=== PATIENT | female | born 1970 ===

== ENCOUNTER 2024-12-27 09:48 | Outpatient (AMB) | payer OTHER, SELFPAY ==
--- OUTSIDE RECORDS SUMMARY | 2011-07-10 | XMS_ITS | Encounter Summary ---
Author Organization [facility] Address [address] [facility] [address] [place] [address] Phone Care Team Providers Care High Voltage Electrician Name Role Phone Unavailable Primary Care Provider Unavailabl e Encounter Details Date Type Department Care Team (Late st Contact Info) Description 07/10/2011 Hospital Encounter [facility] IMG OUTSIDE IM 2013 [place] [address] System, Provider Not In, PhD [address] [address] Social History Tobacco Use Types Packs/Day Years Used Date Smoking Tobacco: Never Smokeless Tobacco: Never Alcohol Use Standard Drinks/Week Comments Yes 1 (1 standard drink = 0.6 oz pur e alcohol) rare Education Answer Date Recorded Are you interested in more education? Not on anabela e 08/07/2022 Are you concerned about learning? Not on file 08/07/2022 No 08/07/2022 No 08/07/2022 Digital Access Answer Date Recorded No 09/07/2022 No 09/07/2022 Reliable internet access at home? Not on file 09/07/2022 Device with a working camera? Not on file Comments No Sex and Gender Information Value Date Recorded Sex Assigned at Female 11/13/2019 10:11 AM EDT Legal Sex Female 2:59 PM EDT Gender Identity Female 11/13/2019 10:11 AM EDT Sexual Orientation Not on file documented as of this encounter Plan of Treatment Upcoming Encounters Date Type Department Care Team (Late st Contact Info) Description 03/13/[address] [facility] Center [address] [facility] [address] [place] [address] 03/19/2025 12:30 PM EST Appointment [facility] [address] [facility] [address] [place] [address] Lorraine Navarro, PINSETTER MECHANIC HELPER [address] [address] [email or web address] 03/19/2025 1:30 PM EST Office Visit [facility] [address] [facility], [address] [place] [address] Lorraine Navarro, PINSETTER MECHANIC HELPER [address] [address] [email or web address] Jocelin Callaway, PINSETTER MECHANIC HELPER [address] [address] [email or web address] documented as of this encounter Procedures Procedure Name Priority Date/Time Associated Diagnosis Comments BI MAMMOGRAM OUTSIDE (NO INTERPRETATION) Routine 07/10/2011 12:00 AM EDT documented in this encounter Results * Mammogram Outside (No Interpretation) (07/10/2011 12:00 AM EDT) Narrative [facility] IMG INTERFACES - 12/16/2016 5:33 PM EDT This study is for PACS storage only and not for interpretation. us Provider Not In System PhD IMG OUTSIDE IMAGING W /OUT INTERPRETATION Final Result [facility] IMG INTERFACES documented in this encounter Visit Diagnoses Not on filedocumented in this encounter Additional Source Comments The information contained in this document represents components of the legal health record. It is not the complete legal health record.[facility]
--- OUTSIDE RECORDS SUMMARY | 2014-05-23 01:00 | XMS_ITS | Encounter Summary ---
Author Organization [facility] Address [address] [facility] [address] [place] [address] Phone Care Team Providers Care Telecommunications Analyst Name Role Phone Unavailable Primary Care Provider Unavailabl e Encounter Details Date Type Department Care Team (Late st Contact Info) Description 05/23/2014 Hospital Encounter [facility] IMG OUTSIDE IM 2013 [place] [address] System, Provider Not In, PhD [address] [address] Social History Tobacco Use Types Packs/Day Years [...] st Contact Info) Description 03/13/2024 Procedure Pass [facility] Breast Evaluation [facility] [address] [facility] [address] [place] [address] 03/19/2025 12:30 PM EST Appointment [facility] [address] [facility] [address] [place] [address] Lorraine Navarro, ORE GRADER [address] [address] [email or web address] 03/19/2025 1:30 PM EST Office Visit [facility] [address] [facility], [address] [place] [address] Lorraine Navarro, ORE GRADER [address] [address] [email or web address] Jocelin Callaway, ORE GRADER [address] [address] [email or web address] documented as of this encounter Procedures Procedure Name Priority Date/Time Associated Diagnosis Comments BI MAMMOGRAM OUTSIDE (NO INTERPRETATION) Routine 05/23/2014 12:00 AM EST documented in this encounter Results * Mammogram Outside (No Interpretation) (05/23/2014 12:00 AM EST) Narrative [facility] IMG INTERFACES - 12/16/2016 5:28 PM EDT This study is for PACS storage only and not for interpretation. us Provider Not In System PhD IMG OUTSIDE IMAGING W /OUT INTERPRETATION Final Result [facility] IMG INTERFACES documented in this encounter Visit Diagnoses Not on filedocumented in this encounter Additional Source Comments The information contained in this document represents components of the legal health record. It is not the complete legal health record.[facility]
--- OUTSIDE RECORDS SUMMARY | 2014-05-31 01:00 | XMS_ITS | Encounter Summary ---
Author Organization [facility] Address [address] [facility] [address] [place] [address] Phone Care Team Providers Care Priest Name Role Phone Unavailable Primary Care Provider Unavailabl e Encounter Details Date Type Department Care Team (Late st Contact Info) Description 05/31/2014 Hospital Encounter [facility] IMG OUTSIDE IM 2013 [place] [address] System, Provider Not In, PhD [address] [address] Social History Tobacco Use Types Packs/Day Years [...] st Contact Info) Description 03/13/[address] [facility] Breast Evaluation Center [address] [facility] [address] [place] [address] 03/19/2025 12:30 PM EST Appointment [facility] [address] [facility] [address] [place] [address] Lorraine Navarro, DRIVER'S LICENSE EXAMINER [address] [address] [email or web address] 03/19/2025 1:30 PM EST Office Visit [facility] [address] [facility], [address] [place] [address] Lorraine Navarro, DRIVER'S LICENSE EXAMINER [address] [address] [email or web address] Jocelin Callaway, DRIVER'S LICENSE EXAMINER [address] [address] [email or web address] documented as of this encounter Procedures Procedure Name Priority Date/Time Associated Diagnosis Comments BI MAMMOGRAM OUTSIDE (NO INTERPRETATION) Routine 05/31/2014 12:00 AM EST documented in this encounter Results * Mammogram Outside (No Interpretation) (05/31/2014 12:00 AM EST) Narrative [facility] IMG INTERFACES - 12/16/2016 5:23 PM EDT This study is for PACS storage only and not for interpretation. us Provider Not In System PhD IMG OUTSIDE IMAGING W /OUT INTERPRETATION Final Result [facility] IMG INTERFACES documented in this encounter Visit Diagnoses Not on filedocumented in this encounter Additional Source Comments The information contained in this document represents components of the legal health record. It is not the complete legal health record.[facility]
--- OUTSIDE RECORDS SUMMARY | 2014-05-31 01:15 | XMS_ITS | Encounter Summary ---
Author Organization [facility] Address [address] [facility] [address] [place] [address] Phone Care Team Providers Care Community Coordinator For High School Name Role Phone Unavailable Primary Care Provider Unavailabl e Encounter Details Date Type Department Care Team (Late st Contact Info) Description 05/31/2014 12:[address] [facility] Hospital Encounter [facility] IMG OUTSIDE IM 2013 [place] [address] System, Provider [place] In, [place] [address] Social History Tobacco Use Types Packs/Day Years [...] st Contact Info) Description 03/13/2024 Procedure Pass [facility] Breast Evaluation Center [address] [facility] [address] [place] [address] 03/19/2025 12:30 PM EST Appointment [place] [facility] [address] [facility] [address] [place] [address] Lorraine Navarro, PHYSICAL CHEMIST [address] [address] [email or web address] 03/19/2025 1:30 PM EST Office Visit [facility] [address] [facility], [address] [place] [address] Lorraine Navarro, PHYSICAL CHEMIST [address] [address] [email or web address] Jocelin Callaway, PHYSICAL CHEMIST 55 [facility] 7 [place] [address] [email or web address] documented as of this encounter Procedures Procedure Name Priority Date/Time Associated Diagnosis Comments BI US BREAST OUTSIDE (NO INTERPRETATION) Routine 05/31/2014 12:15 AM EST documented in this encounter Results * US Breast Outside (No Interpretation) (05/31/2014 12:15 AM EST) Narrative [facility] IMG INTERFACES - 12/16/2016 5:25 PM EDT This study is for PACS storage only and not for interpretation. us Provider Not In System PhD IMG OUTSIDE IMAGING W /OUT INTERPRETATION Final Result [facility] IMG INTERFACES documented in this encounter Visit Diagnoses Not on filedocumented in this encounter Additional Source Comments The information contained in this document represents components of the legal health record. It is not the complete legal health record.[facility]
--- OUTSIDE RECORDS SUMMARY | 2014-06-04 01:00 | XMS_ITS | Encounter Summary ---
Author Organization [facility] Address [address] [facility] [address] [place] [address] Phone Care Team Providers Care Pullboat Engineer Name Role Phone Unavailable Primary Care Provider Unavailabl e Encounter Details Date Type Department Care Team (Late st Contact Info) Description 06/04/2014 Hospital Encounter [facility] IMG OUTSIDE IM 2013 [place] [address] System, Provider Not In, PhD [address] [address] Social History Tobacco Use Types Packs/Day Years [...] [place] [facility] [address] [facility] [address] [place] [address] 03/19/2025 12:30 PM EST Appointment [facility] [address] [facility] [address] [place] [address] Lorraine Navarro, NITRATOR OPERATOR [address] [address] [email or web address] 03/19/2025 1:30 PM EST Office Visit [facility] Breast Center [address] [facility], [address] [place] [address] Lorraine Navarro, NITRATOR OPERATOR [address] [address] [email or web address] Jocelin Callaway, NITRATOR OPERATOR [address] [address] [email or web address] documented as of this encounter Procedures Procedure Name Priority Date/Time Associated Diagnosis Comments BI MAMMOGRAM OUTSIDE (NO INTERPRETATION) Routine 06/04/2014 12:00 AM EST documented in this encounter Results * Mammogram Outside (No Interpretation) (06/04/2014 12:00 AM EST) Narrative [facility] IMG INTERFACES - 12/16/2016 5:18 PM EDT This study is for PACS storage only and not for interpretation. us Provider Not In System PhD IMG OUTSIDE IMAGING W /OUT INTERPRETATION Final Result [facility] IMG INTERFACES documented in this encounter Visit Diagnoses Not on filedocumented in this encounter Additional Source Comments The information contained in this document represents components of the legal health record. It is not the complete legal health record.[facility]
--- OUTSIDE RECORDS SUMMARY | 2014-06-04 01:15 | XMS_ITS | Encounter Summary ---
Author Organization [facility] Address [address] [facility] [address] [place] [address] Phone Care Team Providers Care System Administrator Name Role Phone Unavailable Primary Care Provider Unavailabl e Encounter Details Date Type Department Care Team (Late st Contact Info) Description 06/04/2014 12:15 AM [facility] Hospital Encounter [facility] IMG OUTSIDE IM [address] [place] [address] System, Provider [place] In, [place] [address] Social History Tobacco Use Types Packs/Day Years [...] st Contact Info) Description 03/13/2024 Procedure Pass [facility] Breast Evaluation Center [address] [place] [address] 03/19/2025 12:30 PM EST Appointment [facility] [address] [place] [address] Lorraine Navarro, NOC ANALYST [address] [address] [email or web address] [email or web address] 03/19/2025 1:30 PM EST Office Visit [facility] Breast Center [address], [address] [place] [address] Lorraine Navarro, NOC ANALYST [address] [address] [email or web address] Jocelin Callaway, NOC ANALYST [address] [address] [email or web address] documented as of this encounter Procedures Procedure Name Priority Date/Time Associated Diagnosis Comments BI US BREAST OUTSIDE (NO INTERPRETATION) Routine 06/04/2014 12:15 AM EST documented in this encounter Results * US Breast Outside (No Interpretation) (06/04/2014 12:15 AM EST) Narrative [facility] IMG INTERFACES - 12/16/2016 5:20 PM EDT This study is for PACS storage only and not for interpretation. us Provider Not In System PhD IMG OUTSIDE IMAGING W /OUT INTERPRETATION Final Result [facility] IMG INTERFACES documented in this encounter Visit Diagnoses Not on filedocumented in this encounter Additional Source Comments The information contained in this document represents components of the legal health record. It is not the complete legal health record.[facility]
--- OUTSIDE RECORDS SUMMARY | 2014-11-21 | XMS_ITS | Encounter Summary ---
Author Organization [facility] Address [address] [facility] [address] [place] [address] Phone Care Team Providers Care Peer Specialist Name Role Phone Unavailable Primary Care Provider Unavailabl e Encounter Details Date Type Department Care Team (Late st Contact Info) Description 11/21/2014 Hospital Encounter [facility] IMG OUTSIDE IM 2013 [place] [address] System, Provider Not In, PhD [address] [address] Social History Tobacco Use Types Packs/Day Years [...] st Contact Info) Description 03/13/2024 Procedure Pass [facility] Breast Evaluation Center [address] [facility] [facility] [address] [place] [address] 03/19/2025 12:30 PM EST Appointment [facility] [address] [place] [address] Lorraine Navarro, FOUNDRY WORKER [address] [address] [email or web address] 03/19/2025 1:30 PM EST Office Visit [facility] [address], [address] [place] [address] Lorraine Navarro, FOUNDRY WORKER [address] [address] [email or web address] Jocelin Callaway, FOUNDRY WORKER [address] [address] [email or web address] documented as of this encounter Procedures Procedure Name Priority Date/Time Associated Diagnosis Comments BI US BREAST OUTSIDE (NO INTERPRETATION) Routine 11/21/2014 12:00 AM EDT documented in this encounter Results * US Breast Outside (No Interpretation) (11/21/2014 12:00 AM EDT) Narrative [facility] IMG INTERFACES - 12/16/2016 5:15 PM EDT This study is for PACS [...]
--- OUTSIDE RECORDS SUMMARY | 2015-09-24 | XMS_ITS | Encounter Summary ---
Author Organization [facility] Address [address] [facility] [address] [place] [address] Phone Care Team Providers Care Enterprise Engineer Name Role Phone Unavailable Primary Care Provider Unavailabl e Encounter Details Date Type Department Care Team (Late st Contact Info) Description 09/24/2015 Hospital Encounter [facility] IMG OUTSIDE IM 2013 [place] [address] System, Provider Not In, PhD [address] [address] Social History Tobacco Use Types Packs/Day Years [...] st Contact Info) Description 03/13/2024 Procedure Pass [facility] Breast Evaluation Center [address] [facility] [facility] [address] [place] [address] 03/19/2025 12:30 PM EST Appointment [facility] [address] [place] [address] Lorraine Navarro, INGOT PASSER [address] [address] [email or web address] 03/19/2025 1:30 PM EST Office Visit [facility] Breast Center [address], [address] [place] [address] Lorraine Navarro, INGOT PASSER [address] [address] [email or web address] Jocelin Callaway, INGOT PASSER [address] [address] [email or web address] documented as of this encounter Procedures Procedure Name Priority Date/Time Associated Diagnosis Comments BI MAMMOGRAM OUTSIDE (NO INTERPRETATION) Routine 09/24/2015 12:00 AM EDT documented in this encounter Results * Mammogram Outside (No Interpretation) (09/24/2015 12:00 AM EDT) Narrative [facility] IMG INTERFACES - 12/16/2016 5:10 PM EDT This study is for PACS storage only and not for interpretation. us Provider Not In System PhD IMG OUTSIDE IMAGING W /OUT INTERPRETATION Final Result [facility] IMG INTERFACES documented in this encounter Visit Diagnoses Not on filedocumented in this encounter Additional Source Comments The information contained in this document represents components of the legal health record. It is not the complete legal health record.[facility]
--- OUTSIDE RECORDS SUMMARY | 2024-12-27 11:36 | XMS_ITS | Encounter Summary ---
Author Organization [facility] Address [address] [place] [address] [place] [address] Phone Care Team Providers Care Manager Planning Name Role Phone Viola Schulz MD Primary Care Provider [phone] Erin Campa MD Unavailable Sumi Wilson Unavailable [phone] Encounter Details Date Type Department Care Team (Late st Contact Info) Description 12/18/2016 Procedure Pass [facility] PERIOPERATIVE DEPT 2013 [place] [address] Social History Tobacco Use Types Packs/Day Years Used Date Smoking Tobacco: Never Smokeless Tobacco: Never Alcohol Use Standard Drinks/Week Comments Yes 0 (1 standard drink = 0.6 oz pur e alcohol) rare Comments No Sex and Gender Information Value Date Recorded Sex Assigned at Female 11/13/2019 10:11 AM EDT Legal Sex Female 2:59 PM EDT Gender Identity Female 11/13/2019 10:11 AM EDT Sexual Orientation Not on file documented as of this encounter Plan of Treatment Upcoming Encounters Date Type Department Care Team (Late st Contact Info) Description 03/13/2024 Procedure Pass [facility] Breast Evaluation Center [address] [place] [address] 03/19/2025 12:30 PM EST Appointment [facility] [address] [place] [address] 240 [place] [address] Lorraine Navarro, ELECTRICIAN HELPER AUTOMOTIVE [address] [address] 03/19/2025 1:30 PM EST Office Visit [facility] Breast Center 15 [facility], [address] [place] [address] Lorraine Navarro, ELECTRICIAN HELPER AUTOMOTIVE 15 [facility] [address] [place] [address] [email or web address] Jocelin Callaway, ELECTRICIAN HELPER AUTOMOTIVE 55 [facility] [address] [place] [address] [email or web address] documented as of this encounter Visit Diagnoses Not on filedocumented in this encounter Care Teams Manager Planning Relationship Specialty Start Date End Date Viola Schulz MD [address] [place] [address] [address] [place] [address] PCP - General Internal Medicine 08/17/16 Erin Campa MD [address] [place] [address] [email or web address] Primary Oncologist Medical Oncology 10/05/17 Sumi Wilson FNP 30 [place] [address] [email or web address] Nurse Practitioner Oncology 05/30/21 documented as of this encounter Additional Source Comments The information contained in this document represents components of the legal health record. It is not the complete legal health record.[facility]
--- OUTSIDE RECORDS SUMMARY | 2024-12-27 11:36 | XMS_ITS | Encounter Summary ---
Author Organization [facility] Address [address] [place] [address] Phone Care Team Providers Care Community Health Program Representative Name Role Phone Viola Schulz MD Primary Care Provider [phone] Erin Campa MD Unavailable Sumi Wilson Unavailable [phone] Encounter Details Date Type Department Care Team (Late st Contact Info) Description 11/12/2022 Procedure Pass [facility] Breast Evaluation Center 15 [facility] [address] [place] [address] Social History Tobacco Use Types Packs/Day Years [...] st Contact Info) Description 03/13/2024 Procedure Pass [facility] Breast Evaluation [place] 15 [facility] [address] [place] [address] 03/19/2025 12:30 PM EST Appointment [facility] Breast Evaluation [place] [address] [address] Lorraine Navarro, BIOSECURITY OFFICER [address] [address] [email or web address] 03/19/2025 1:30 PM EST Office Visit [facility] 15 [facility], [address] [place] [address] Lorraine Navarro, BIOSECURITY OFFICER [address] [address] [email or web address] Jocelin Callaway, BIOSECURITY OFFICER [address] [place] [address] [email or web address] documented as of this encounter Visit Diagnoses Not on filedocumented in this encounter Care Teams Community Health Program Representative Relationship Specialty Start Date End Date Viola Schulz MD [address] [place] [address] PCP - General Internal Medicine 08/17/16 Erin Campa MD [address] [place] [address] [email or web address] Primary Oncologist Medical Oncology 10/05/17 Sumi Wilson FNP 30 [place] [address] Nurse Practitioner Oncology 05/30/21 documented as of this encounter Additional Source Comments The information contained in this document represents components of the legal health record. It is not the complete legal health record.[facility]
--- OUTSIDE RECORDS SUMMARY | 2024-12-27 11:36 | XMS_ITS | Encounter Summary ---
Author Organization [facility] Address [address] [place] [address] [place] [address] Phone Care Team Providers Care Brick Extruder Operator Name Role Phone Viola Schulz MD Primary Care Provider [phone] Erin Campa MD Unavailable Sumi Wilson Unavailable [phone] Encounter Details Date Type Department Care Team (Late st Contact Info) Description 08/24/2016 Procedure Pass [facility] PERIOPERATIVE DEPT 2013 [place] [address] Social History Tobacco Use Types Packs/Day Years Used Date Smoking Tobacco: Never Smokeless Tobacco: Never Alcohol Use Standard Drinks/Week Comments No 0 (1 standard drink = 0.6 oz pur e alcohol) Comments No Sex and Gender Information Value [...] [facility] Breast Evaluation Center [address] [place] [address] 03/19/2025 12:30 PM EST Appointment [facility] [address] [place] [address] 240 [place] [address] Lorraine Navarro, ROCKET ENGINE TESTER [address] [place] [address] 03/19/2025 1:30 PM EST [facility] 15 [facility], [address] [place] [address] Lorraine Navarro, ROCKET ENGINE TESTER 15 [facility] [address] [place] [address] [email or web address] Jocelin Callaway, ROCKET ENGINE TESTER 55 [facility] [address] [place] [address] [email or web address] documented as of this encounter Visit Diagnoses Not on filedocumented in this encounter Care Teams Brick Extruder Operator Relationship Specialty Start Date End Date Viola Schulz MD [address] [place] [address] [address] [place] [address] PCP - General Internal Medicine 08/17/16 Erin Campa MD 30 [place] [address] [email or web address] Primary Oncologist Medical Oncology 10/05/17 Sumi Wilson FNP 30 [place] [address] [email or web address] Nurse Practitioner Oncology 05/30/21 documented as of this encounter Additional Source Comments The information contained in this document represents components of the legal health record. It is not the complete legal health record.[facility]
--- OUTSIDE RECORDS SUMMARY | 2024-12-27 11:36 | XMS_ITS | Encounter Summary ---
Author Organization [facility] Address [address] [place] [address] [place] [address] Phone Care Team Providers Care Manager Of Operations Name Role Phone Viola Schulz MD Primary Care Provider [phone] Erin Campa MD Unavailable Sumi Wilson Unavailable [phone] Encounter Details Date Type Department Care Team (Late st Contact Info) Description 12/18/2016 Procedure Pass [facility] Breast [facility], [facility] 2013 [place] [address] Social History Tobacco Use Types Packs/Day Years [...] st Contact Info) Description 03/13/2024 Procedure Pass [facility] Breast Evaluation Center [address] [address] 03/19/2025 12:30 PM EST Appointment [facility] Breast Evaluation Center [address] [place] [address] 240 [place] [address] Lorraine Navarro, GRADUATE INTERNSHIP [address] [place] [address] 03/19/2025 1:30 PM EST Office Visit [facility] Breast Center 15 [facility], [address] [place] [address] Lorraine Navarro, GRADUATE INTERNSHIP 15 [facility]450 [place] [address] [email or web address] Jocelin Callaway, GRADUATE INTERNSHIP 55 [facility] 7 [place] [address] [email or web address] documented as of this encounter Visit Diagnoses Not on filedocumented in this encounter Care Teams Manager Of Operations Relationship Specialty Start Date End Date Viola Schulz MD [address] [place] [address] 104 [place] [address] PCP - General Internal Medicine 08/17/16 Erin Campa MD [address] [place] [address] [email or web address] Primary Oncologist Medical Oncology 10/05/17 Sumi Wilson FNP [address] [place] [address] [email or web address] Nurse Practitioner Oncology 05/30/21 documented as of this encounter Additional Source Comments The information contained in this document represents components of the legal health record. It is not the complete legal health record.[facility]
--- OUTSIDE RECORDS SUMMARY | 2024-12-27 11:36 | XMS_ITS | Encounter Summary ---
Author Organization [facility] Address [address] [place] [address] Phone Care Team Providers Care Retail Sales Associate Name Role Phone Viola Schulz MD Primary Care Provider [phone] Erin Campa MD Unavailable [phone] Sumi Wilson Unavailable [phone] Encounter Details Date Type Department Care Team (Late st Contact Info) Description 11/28/2023 Procedure Pass [facility] Breast Evaluation Center 15 [facility] [address] [place] [address] Social History Tobacco Use Types Packs/Day Years [...] st Contact Info) Description 03/13/2024 Procedure Pass [facility] Breast Evaluation [place] 15 [facility] [address] [place] [address] 03/19/2025 12:30 PM EST Appointment [facility] Breast Evaluation [place] [address] [address] Lorraine Navarro, TECH ED/WOODSHOP TEACHER [address] [address] [email or web address] 03/19/2025 1:30 PM EST Office Visit [facility] 15 [facility], [address] [place] [address] Lorraine Navarro, TECH ED/WOODSHOP TEACHER [address] [address] [email or web address] Jocelin Callaway, TECH ED/WOODSHOP TEACHER [address] [place] [address] [email or web address] documented as of this encounter Visit Diagnoses Not on filedocumented in this encounter Care Teams Retail Sales Associate Relationship Specialty Start Date End Date Viola Schulz MD [address] [place] [address] PCP - General Internal Medicine 08/17/16 Erin Campa MD [address] [place] [address] [email or web address] Primary Oncologist Medical Oncology 10/05/17 Sumi Wilson FNP 30 [place] [address] Nurse Practitioner Oncology 05/30/21 documented as of this encounter Additional Source Comments The information contained in this document represents components of the legal health record. It is not the complete legal health record.[facility]
--- OUTSIDE RECORDS SUMMARY | 2024-12-27 11:37 | XMS_ITS | Encounter Summary ---
Author Organization [facility] Address [address] [facility] [address] [place] [address] Phone Care Team Providers Care Clerk Cashier Name Role Phone Kay Russ MD Primary Care Provider [phone] Viola Schulz MD Primary Care Provider [phone] Erin Campa MD Unavailable [phone] Sumi Wilson Unavailable [phone] Encounter Details Date Type Department Care Team (Latest Contact Info) Description 07/08/[address] [facility] LAB SPECIMEN 2013 [place], [place] [id number] Jeronimo Miles MD, ASAD [address] [address] [email or web address] Diverticulitis of bladder (Primary Dx) Social History Tobacco Use Types Packs/Day Years Used Date Smoking Tobacco: Unknown Alcohol Use Standard Drinks/Week Comments No 0 [...] st Contact Info) Description 03/13/2024 Procedure Pass [facility] Breast Evaluation Center 15 [facility] [address] [place] [address] 03/19/2025 12:30 PM EST Appointment [facility] 15 [facility] [address] [place] [address] Lorraine Navarro, SELF PAY COLLECTOR [address] [address] [email or web address] 03/19/2025 1:30 PM EST Office Visit [facility] Breast [facility] 15 [facility], [address] [place] [address] Lorraine Navarro, SELF PAY COLLECTOR [address] [address] [email or web address] Jocelin Callaway, SELF PAY COLLECTOR [address] [address] [email or web address] documented as of this encounter Results * (ABNORMAL) Urinalysis with sediment ([facility] ,[facility] ,[facility]) (07/08/2016 6:22 PM EDT) COLOR Yellow Yellow [facility] CLARITY Clear Clear [facility] SPECIFIC GRAVITY 1.016 1.001 - 1.030 [facility] BLOOD Negative Negative [facility] BILI Negative Negative [facility] KETONES Negative Negative [facility] GLUCOSE Negative Negative [facility] URINE PROTEIN Negative Negative [facility] PH 6.0 5 - 8 [facility] Leukocyte esterase, ur Negative Negative [facility] NITRITE Negative Negative [facility] UROBILINOGEN Negative Negative [facility] RBC <1 0 - 3 /hpf [facility] WBC 2 0 - 4 /hpf [facility] BACTERIA Few(A) NONE SEEN [facility] SQUAMOUS CELLS 1 0 - 4 [facility] Urine 07/08/2016 6:22 PM EDT 07/08/2016 7:16 PM EDT us Jeronimo Miles MD, ASAD URINE ORDERABLES Edited Res ult - Final [facility] [address] [place] [address] * (ABNORMAL) Urine culture ([facility] ,[facility] ,[facility] ,[facility] ,[facility] ,[facility]) (07/08/2016 6:22 PM EDT) Specimen Source/ Description CLEAN VOIDED SPECIMEN URINE CLEAN VOIDED SPECIMEN [facility] Special Requests No Special Requests [facility] Culture/Test >100,000 colony forming units per ml ENTEROCOCCUS FAECALIS(A) [facility] Culture/Test 10,000 to 50,000 colony forming units per ml STAPHYLOCOCCUS EPIDERMIDIS(A) [facility] Report Status 07/12/2016 FINAL [facility] ORGANISM ENTEROCOCCUS FAECALIS [facility] ORGANISM STAPHYLOCOCCUS EPIDERMIDIS [facility] Clean voided specimen 07/08/2016 6:22 PM EDT 07/08/2016 7:15 PM EDT Narrative Organism Antibiotic Method Susceptibility Enterococcus faecalis Ampicillin 1-25-OH TAMIN D <=2: Susceptible Enterococcus faecalis Penicillin G 1-25-OH TAMIN D 2: Susceptible Enterococcus faecalis Ciprofloxacin 1-25-OH TAMIN D <=1: Susceptible Enterococcus faecalis Nitrofurantoin 1-25-OH TAMIN D <=32: Susceptible Enterococcus faecalis Tetracycline 1-25-OH TAMIN D <=4: Susceptible Enterococcus faecalis Daptomycin 1-25-OH TAMIN D <=0.5: Susceptible Enterococcus faecalis Rifampin 1-25-OH TAMIN D 2: Intermediate Enterococcus faecalis Vancomycin 1-25-OH TAMIN D 1: Susceptible Enterococcus faecalis Streptomycin Synergy 1-25- OH VITAMIN D Susceptible Enterococcus faecalis Linezolid 1-25-OH TAMIN D <=1: Susceptible Enterococcus faecalis Levofloxacin 1-25-OH TAMIN D <=1: Susceptible Enterococcus faecalis Gentamicin Synergy 1-25-OH VITAMIN D Susceptible Enterococcus faecalis Erythromycin 1-25-OH TAMIN D <=0.5: Susceptible Comment:>100,000 colony form ing units per ml ENTEROCOCCUS FAECALIS Staphylococcus epidermidis Penicillin G 1-25-OH VITAMIN D >8: Resistant Staphylococcus epidermidis Oxacillin(methicillin) 1-25-OH VITAMIN D >2: Resistant Staphylococcus epidermidis Trimethoprim/sulfamethox azole 1-25-OH VITAMIN D >2/38: Resistant Staphylococcus epidermidis Nitrofurantoin 1-25-OH VITAMIN D <=32: Susceptible Staphylococcus epidermidis Tetracycline 1-25-OH VITAMIN D <=4: Susceptible Staphylococcus epidermidis Clindamycin 1-25-OH VITAMIN D <=0.5: Susceptible Staphylococcus epidermidis Erythromycin 1-25-OH VITAMIN D <=0.5: Susceptible Staphylococcus epidermidis Daptomycin 1-25-OH VITAMIN D <=0.5: Susceptible Staphylococcus epidermidis Vancomycin 1-25-OH VITAMIN D 2: Susceptible Staphylococcus epidermidis Linezolid 1-25-OH VITAMIN D 2: Susceptible Staphylococcus epidermidis Moxifloxacin 1-25-OH VITAMIN D <=0.5: Susceptible Staphylococcus epidermidis Ampicillin 1-25-OH VITAMIN D >8: Resistant Staphylococcus epidermidis Ciprofloxacin 1-25-OH VITAMIN D <=1: Susceptible Staphylococcus epidermidis Gentamicin 1-25-OH VITAMIN D <=4: Susceptible Staphylococcus epidermidis Levofloxacin 1-25-OH VITAMIN D <=1: Susceptible Staphylococcus epidermidis Rifampin 1-25-OH VITAMIN D <=1: Susceptible Staphylococcus epidermidis Quinupristin-dalfopristi n 1-25-OH VITAMIN D <=1: Susceptible Comment:10,000 to 50,000 col rigoberto forming units per ml STAPHYLOCOCCUS EPIDERMIDIS Jeronimo Miles MD, ASAD MICROBIOLOGY - GENERAL MICK KUMAR Final Result Performing Organization Address City/State/[facility] de Phone Number [facility] [address] [place] [address] documented in this encounter Visit Diagnoses Diagnosis Diverticulitis of bladder- Primary Diverticulum of bladder documented in this encounter Care Teams Clerk Cashier Relationship Specialty Start Date End Date Kay Russ MD PCP - General Family Medicine 07/08/16 08/16/16 Viola Schulz MD [address] [place] [address] PCP - General Internal Medicine 08/17/16 Erin Campa MD [address] [place] [address] [email or web address] Primary Oncologist Medical Oncology 10/05/17 Sumi Wilson FNP [address] [place] [address] [email or web address] Nurse Practitioner Oncology 05/30/21 documented as of this encounter Additional Source Comments The information contained in this document represents components of the legal health record. It is not the complete legal health record.[facility]
--- OUTSIDE RECORDS SUMMARY | 2024-12-27 11:37 | XMS_ITS | Encounter Summary ---
Author Organization [facility] Address [address] [place] [address] Phone Care Team Providers Care Publications Sales Representative Name Role Phone Kay Russ MD Primary Care Provider Viola Schulz MD Primary Care Provider Erin Campa MD Unavailable [phone] Sumi Wilson Unavailable Encounter Details Date Type Department Care Team (Late st Contact Info) Description 08/06/2016 Transcribe Orders [facility] LAB SPECIMEN [address] [place] [address] Key Lamb PA [address] [place] [address] Acute cystitis with hematuria (Primary Dx) Social History Tobacco Use Types [...] st Contact Info) Description 03/13/2024 Procedure Pass [facility] Breast Evaluation Center 15 [facility] [address] [place], [place] [phone] 03/19/2025 12:30 PM EST Appointment [facility] Breast Evaluation Center [address] [facility] [address] [place] [address] Lorraine Navarro, SUPERVISOR INSTRUMENT MECHANICS [address] [address] [email or web address] 03/19/2025 1:30 PM EST Office Visit [facility] [place] [address] [facility], [address] [place] [address] Lorraine Navarro, SUPERVISOR INSTRUMENT MECHANICS [address] [address] [email or web address] Jocelin Callaway, SUPERVISOR INSTRUMENT MECHANICS 55 [facility] 7 [place] [address] [email or web address] documented as of this encounter Results * (ABNORMAL) Urine culture (08/06/2016 5:26 PM EDT) Specimen Source/ Description URINE CLEAN CATCH URINE [facility] Special Requests No Special Requests [facility] Culture/Test >100,000 colony forming units per ml KLEBSIELLA OXYTOCA(A) [facility] Report Status 08/08/2016 FINAL [facility] ORGANISM KLEBSIELLA OXYTOCA [facility] Urine 08/06/2016 5:26 PM EDT 08/06/2016 5:26 PM EDT Narrative Organism Antibiotic Method Susceptibility Klebsiella oxytoca Amikacin ALISTAIR <=16: Susceptible Klebsiella oxytoca Ampicillin-sulbactam ALISTAIR <=8/4: Susceptible Klebsiella oxytoca Ampicillin ALISTAIR <=8: Resistant Klebsiella oxytoca Aztreonam ALISTAIR <=4: Susceptible Klebsiella oxytoca Cefepime ALISTAIR <=4: Susceptible Klebsiella oxytoca Cefoxitin ALISTAIR <=8: Susceptible Klebsiella oxytoca Ceftazidime ALISTAIR <=1: Susceptible Klebsiella oxytoca Ceftriaxone ALISTAIR <=1: Susceptible Klebsiella oxytoca Cefuroxime ALISTAIR <=4: Susceptible Klebsiella oxytoca Ciprofloxacin ALISTAIR <=1: Susceptible Klebsiella oxytoca Gentamicin ALISTAIR <=4: Susceptible Klebsiella oxytoca Imipenem ALISTAIR <=1: Susceptible Klebsiella oxytoca Levofloxacin ALISTAIR <=2: Susceptible Klebsiella oxytoca Meropenem ALISTAIR <=1: Susceptible Klebsiella oxytoca Nitrofurantoin ALISTAIR <=32: Susceptible Klebsiella oxytoca Piperacillin-tazobactam ALISTAIR <=16: Susceptible Klebsiella oxytoca Tigecycline ALISTAIR <=2: Susceptible Klebsiella oxytoca Tobramycin ALISTAIR <=4: Susceptible Klebsiella oxytoca Trimethoprim/sulfamethoxazole ALISTAIR <=2/38: Susceptible Comment:>100,000 colony form ing units per ml KLEBSIELLA OXYTOCA us Key [place] MICROBIOLOGY - GENERAL ORDERABLE S Final Result [facility] [address] [place] [address] documented in this encounter Visit Diagnoses Diagnosis Acute cystitis with hematuria- Primary documented in this encounter Care Teams Publications Sales Representative Relationship Specialty Start Date End Date Kay Russ MD PCP - General Family Medicine 07/08/16 08/16/16 Viola Schulz MD [address] [place] [address] PCP - General Internal Medicine 08/17/16 Erin Campa MD [address] [place] [address] Primary Oncologist Medical Oncology 10/05/17 Sumi Wilson FNP [address] [place] [address] Nurse Practitioner Oncology 05/30/21 documented as of this encounter Additional Source Comments The information contained in this document represents components of the legal health record. It is not the complete legal health record.[facility]
--- OUTSIDE RECORDS SUMMARY | 2024-12-27 11:37 | XMS_ITS | Clinical Summary ---
Author Organization [facility] Address [address] [address] Phone Care Team Providers Care Extracting Machine Operator Name Role Phone Viola Schulz MD Primary Care Provider [phone] Erin Campa MD Unavailable Sumi Wilson Unavailable Allergies No known active allergies Medications PARoxetine (PAXIL) 20 MG tablet Take 20 mg by mouth every morning. Active cetirizine (ZYRTEC) 10 MG tablet Take 10 mg by mouth daily. Active fluticasone propionate (FLONASE) 50 mcg/actuation nasal spray 1 spray by Nasal route daily. Active GLUCOSAMINE-COND ROITIN-HRB#182 ORAL Take 2 tablets by mouth daily. Active MULTIVITAMIN,THE RAPEUTIC (THERAPEUTIC MULTIVITAMIN ORAL) Take 1 tablet by mouth daily. Active MELATONIN ORAL Take 1.5 mg by mouth nightly. Active DOCOSAHEXANOIC ACID/EPA (FISH OIL ORAL) Take 1 tablet by mouth daily. Active triamcinolone acetonide 0.025 % cream Apply 1 application topically 3 (three) times a day as needed. Active BIFIDOBACTERIUM INFANTIS (ALIGN ORAL) Take 1 capsule by mouth daily. Active levothyroxine (SYNTHROID, LEVOTHROID) 100 MCG tablet Take 100 mcg by mouth every morning. Active nortriptyline (PAMELOR) 10 MG capsule Take 10 mg by mouth nightly at bedtime. Active Active Problems Patient Care Coordination No te Formatting of this note migh t be different from the original. 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 Cancer Staging:Clinical stage from 11/02/2016:Stage Unknown(Tis (DCIS), NX, M0) - Signed by Mariela Aguilera CNP on 11/02/2016 Immunizations Immunization Administration Dates Next Due COVID-19 (Pre-02/01) Moderna Vaccine, mRNA, PF 0 07/03/2020,06/05/2020 Influenza Quadrivalent MDCK Preservative Free IM 12/29/2018 Influenza Quadrivalent Preservative Free IM 12/11 Family History Medical History Relation Comments Breast cancer Father Prostrate cancer Breast cancer Mother DCIS Uterine cancer Paternal Grandmother diagnosed l ate 40s/50s; soon after Relation Status Comments Father Mother Alive Paternal Grandmother Social History Tobacco Use Types Packs/Day Years Used Date Smoking Tobacco: Never Smokeless Tobacco: Never Tobacco Cessation:Counseling Given: Not Answered Alcohol Use Standard Drinks/Week Comments Yes 1 [...] AM EDT Sexual Orientation Not on file Last Filed Vital Signs Vital Sign Reading Time Taken Comments Blood Pressure 115/77 04/25/2019 8:26 AM EST Pulse 63 04/25/2019 8:26 AM EST Temperature 36.6 C (97.9 F) 04/25/2019 8:26 AM EST Respiratory Rate 16 07/01/2017 2:13 PM EDT Oxygen Saturation 100% 04/25/2019 8:26 AM EST Inhaled Oxygen Concentration - - Weight 76.2 kg (168 lb) 04/25/2019 8:26 AM EST Height 173 cm (5' 8.11 ) 04/22/2018 8:07 AM EST Body Mass Index 25.46 04/22/2018 8:07 AM EST Plan of Treatment Upcoming Encounters Date Type Department Care Team (Late st Contact Info) Description 03/13/2024 Procedure Pass [facility] Breast Evaluation [address] [place] [address] 03/19/2025 12:30 PM EST Appointment [facility] Breast Evaluation [address] [address] Lorraine Navarro, JAVA TECHNICAL MANAGER [address] [address] [email or web address] 03/19/2025 1:30 PM EST Office Visit [address], [address] [address] Lorraine Navarro, JAVA TECHNICAL MANAGER [address] [address] [email or web address] Jocelin Callaway, ABIODUN 55 [facility] 7 [place] [address] [email or web address] Health Maintenance Due Date Last Done Comments Adult Td,Tdap Booster 1969 LIPID PANEL 1969 TSH LEVEL 1969 DEPRESSION SCREENING 1981 HEPATITIS C SCREENING 10/27/1987 HIV ONE-TIME SCREENING (18-65 YEARS) 10/27/1987 PNEUMOCOCCAL VACCINES (50+ years) (1 of 2 - PCV) 1988 PAP SMEAR 1990 COLOGUARD 2014 COLONOSCOPY 2014 COLORECTAL CANCER SCREENING 2014 FIT TEST 2014 FOBT 2014 SIGMOIDOSCOPY 2014 VIRTUAL COLONOSCOPY 2014 INFLUENZA VACCINE (#1) 2024 , 01/31/2022, 01/13/2021, Additional history exists COVID-19 VACCINE ( season) 2024 01/31/2022, 07/09/2021, 02/05/2021, Additional history exists MAMMOGRAM 03/13/2026 03/13/2024, 12/12, 11/27/2021, Additional history exists ZOSTER VACCINES Completed 09/17/2023, 06/18/2023 SMOKING STATUS SCREENING (Once After 26 Yrs) Completed 03/13/2024 HEPATITIS A VACCINES Aged Out No long er eligible based on patient's age to complete this topic HIB VACCINES Aged Out No longer eligi ble based on patient's age to complete this topic MENINGOCOCCAL VACCINES (ACWY) Aged Out No longer eligible based on patient's age to complete this topic MENINGOCOCCAL VACCINES (B) Aged Out N o longer eligible based on patient's age to complete this topic Medical Devices Implanted Type Area Tool Crib Lead Device Identifier Shelf Expiration Date Model / Serial / Lot Mirena Iud Explanted Type Area Tool Crib Lead Device Identifier Shelf Expiration Date Model / Serial / Lot Bladder Mesh Procedures Procedure Name Priority Date/Time Associated Diagnosis Comments BI MAMMOGRAM SCREENING WITH TOMOSYNTHESIS WITH CAD (BILATERAL) Routine 03/13/2024 2:47 PM EST Visit for screening mammogram from Last 3 Months or Most Recently Relevant to Health Maintenance Results * BI MAMMOGRAM SCREENING WITH TOMOSYNTHESIS WITH CAD (BILATERAL) (03/13/2024 2:47 PM EST) Anatomical Region Laterality Modality Breast Left, Breast Right, Breast Bilateral Bila teral Mammography 03/13/2024 2:50 PM EST Impressions 03/13/2024 2:52 PM EST No mammographic evidence of malignancy in either breast. Annual screening mammography is recommended. BI-RADS 2 BENIGN The patient will be notified of the results and recommendations. Narrative 03/13/2024 2:52 PM EST BI MAMMOGRAM SCREENING WITH TOMOSYNTHESIS WITH CAD (BILATERAL) Additional patient information: Screening. COMPARISON: Comparison is made with relevant prior imaging. Breast composition: There are scattered areas of fibroglandular density. FINDINGS: Post-treatment changes are present in the left breast. No abnormal masses, suspicious calcifications, or other significant findings are identified mammographically in either breast. Procedure Note Naheed Luevano MD - 03/13/2024 BI MAMMOGRAM SCREENING WITH TOMOSYNTHESIS WITH CAD (BILATERAL) Additional patient information: Screening. COMPARISON: Comparison is made with relevant prior imaging. Breast composition: There are scattered areas of fibroglandular density. FINDINGS: Post-treatment changes are present in the left breast. No abnormal masses, suspicious calcifications, or other significantfindings are identified mammographically in either breast. IMPRESSION: No mammographic evidence of malignancy in either breast. Annual screening mammography is recommended. BI-RADS 2 BENIGN The patient will be notified of the results and recommendations. Viola Schulz MD IMG MG EXAMS Final Result from Last 3 Months or Most Recently Relevant to Health Maintenance Insurance [facility] Care Teams Extracting Machine Operator Relationship Specialty Start Date End Date Viola Schulz MD [address] [place] [address] PCP - General Internal Medicine 08/17/16 Erin Campa MD [address] [place] [address] [email or web address] Primary Oncologist Medical Oncology 10/05/17 Sumi Wilson FNP [address] [place] [address] [email or web address] Nurse Practitioner Oncology 05/30/21 Additional Source Comments The information contained in this document represents components of the legal health record. It is not the complete legal health record.[facility]
--- OUTSIDE RECORDS SUMMARY | 2024-12-27 11:37 | XMS_ITS | Encounter Summary ---
Author Organization [facility] Address [address] [facility] [address] [place] [address] Phone Care Team Providers Care Research Project Manager Name Role Phone Viola Schulz MD Primary Care Provider [phone] Erin Campa MD Unavailable Sumi Wilson Unavailable [phone] Encounter Details Date Type Department Care Team (Late st Contact Info) Description 10/06/2018 Ancillary Orders [facility] Breast Center [address] [place] [address] Angelina Sarmiento MD [address] [address] [email or web address] Social History Tobacco Use Types Packs/Day Years [...] st Contact Info) Description 03/13/2024 Procedure Pass [facility] Breast Evaluation Center 15 [facility] [address] [place] [address] 03/19/2025 12:30 PM EST Appointment [facility] [address] [facility] [address] [place] [address] Lorraine Navarro, FLOOR TECHNICIAN [address] [address] [email or web address] 03/19/2025 1:30 PM EST Office Visit [facility] [address] [facility], [address] [place] [address] Lorraine Navarro, FLOOR TECHNICIAN [address] [address] [email or web address] Jocelin Callaway, FLOOR TECHNICIAN [address] [address] [email or web address] documented as of this encounter Visit Diagnoses Not on filedocumented in this encounter Care Teams Research Project Manager Relationship Specialty Start Date End Date Viola Schulz MD [address] [place] [address] PCP - General Internal Medicine 08/17/16 Erin Campa MD [address] [place] [address] [email or web address] Primary Oncologist Medical Oncology 10/05/17 Sumi Wilson FNP [address] [place] [address] [email or web address] Nurse Practitioner Oncology 05/30/21 documented as of this encounter Additional Source Comments The information contained in this document represents components of the legal health record. It is not the complete legal health record.[facility]
--- OUTSIDE RECORDS SUMMARY | 2024-12-27 11:37 | XMS_ITS | Encounter Summary ---
Author Organization [facility] Address [address] [place] [address] [place] [address] Phone Care Team Providers Care Gta Name Role Phone Viola Schulz MD Primary Care Provider [phone] Erin Campa MD Unavailable Sumi Wilson Unavailable [phone] Encounter Details Date Type Department Care Team (Late st Contact Info) Description 12/16/[address] [facility] IMG OUTSIDE IMG [address] [place] [address] System, Provider Not In, [place] [address] Social History Tobacco Use Types Packs/Day Years [...] st Contact Info) Description 03/13/2024 Procedure Pass [facility] 15 [facility] 240 [place] [address] 03/19/2025 12:30 PM EST Appointment [facility] Breast [facility] [address] [place] [address] [address] [place] [address] Lorraine Navarro, DIGITAL LEARNING PLATFORMS MANAGER 15 [facility]450 [place] [address] [email or web address] 03/19/2025 1:30 PM EST Office Visit [facility] Breast Center 15 [facility], [address] [place] [address] Lorraine Navarro, DIGITAL LEARNING PLATFORMS MANAGER 15 [facility]450 [place] [address] [email or web address] Jocelin Callaway, ABIODUN 55 [facility] [address] [place] [address] [email or web address] documented as of this encounter Results * Mammogram Outside (No Interpretation) (10/05/2016 12:00 AM EDT) Narrative [facility] INTERFACES - 12/16/2016 4:49 PM EDT This study is for PACS storage only and not for interpretation. us Provider Not In System PhD IMG OUTSIDE IMAGING W /OUT INTERPRETATION Final Result Performing Organization Address [facility] de Phone Number [facility] IMG INTERFACES * Mammogram Outside (No Interpretation) (10/01/2016 12:00 AM EDT) Narrative [facility] IMG INTERFACES - 12/16/2016 4:52 PM EDT This study is for PACS storage only and not for interpretation. us Provider Not In System PhD IMG OUTSIDE IMAGING W /OUT INTERPRETATION Final Result Performing Organization Address City/[facility]/ZIP Co de Phone Number [facility] IMG INTERFACES * Mammogram Outside (No Interpretation) (09/25/2016 12:00 AM EDT) Narrative [facility] IMG INTERFACES - 12/16/2016 5:03 PM EDT This study is for PACS storage only and not for interpretation. us Provider Not In System PhD IMG OUTSIDE IMAGING W /OUT INTERPRETATION Final Result Performing Organization Address [facility] de Phone Number [facility] IMG INTERFACES * Mammogram Outside (No Interpretation) (09/24/2015 12:00 AM EDT) Narrative [facility] INTERFACES - 12/16/2016 5:10 PM EDT This study is for PACS storage only and not for interpretation. us Provider Not In System PhD IMG OUTSIDE IMAGING W /OUT INTERPRETATION Final Result Performing Organization Address [facility] de Phone Number [facility] IMG INTERFACES * US Breast Outside (No Interpretation) (11/21/2014 12:00 AM EDT) Narrative [facility] INTERFACES - 12/16/2016 5:15 PM EDT This study is for PACS storage only and not for interpretation. us Provider Not In System PhD IMG OUTSIDE IMAGING W /OUT INTERPRETATION Final Result Performing Organization Address [facility] Phone Number [facility] IMG INTERFACES * US Breast Outside (No Interpretation) (06/04/2014 12:15 AM EST) Narrative [facility] INTERFACES - 12/16/2016 5:20 PM EDT This study is for PACS storage only and not for interpretation. us Provider Not In System PhD IMG OUTSIDE IMAGING W /OUT INTERPRETATION Final Result Performing Organization Address [facility] Phone Number [facility] IM[facility] INTERFACES * Mammogram Outside (No Interpretation) (06/04/2014 12:00 AM EST) Narrative [facility] INTERFACES - 12/16/2016 5:18 PM EDT This study is for PACS storage only and not for interpretation. us Provider Not In System PhD IMG OUTSIDE IMAGING W /OUT INTERPRETATION Final Result Performing Organization Address [facility] de Phone Number [facility] IMG INTERFACES * US Breast Outside (No Interpretation) (05/31/2014 12:15 AM EST) Narrative [facility] INTERFACES - 12/16/2016 5:25 PM EDT This study is for PACS storage only and not for interpretation. us Provider Not In System PhD IMG OUTSIDE IMAGING W /OUT INTERPRETATION Final Result Performing Organization Address City/[facility] de Phone Number [facility] IMG INTERFACES * Mammogram Outside (No Interpretation) (05/31/2014 12:00 AM EST) Narrative [facility] INTERFACES - 12/16/2016 5:23 PM EDT This study is for PACS storage only and not for interpretation. us Provider Not In System PhD IMG OUTSIDE IMAGING W /OUT INTERPRETATION Final Result Performing Organization Address [facility] de Phone Number [facility] IMG INTERFACES * Mammogram Outside (No Interpretation) (05/23/2014 12:00 AM EST) Narrative [facility] IMG INTERFACES - 12/16/2016 5:28 PM EDT This study is for PACS storage only and not for interpretation. us Provider Not In System PhD IMG OUTSIDE IMAGING W /OUT INTERPRETATION Final Result Performing Organization Address [facility] de Phone Number [facility] IMG INTERFACES * Mammogram Outside (No Interpretation) (07/10/2011 12:00 AM EDT) Narrative [facility] IMG INTERFACES - 12/16/2016 5:33 PM EDT This study is for PACS storage only and not for interpretation. us Provider Not In System PhD IMG OUTSIDE IMAGING W /OUT INTERPRETATION Final Result Performing Organization Address [facility] de Phone Number [facility] IMG INTERFACES documented in this encounter Visit Diagnoses Not on filedocumented in this encounter Care Teams Gta Relationship Specialty Start Date End Date Viola Schulz MD [address] [place] [address] PCP - General Internal Medicine 08/17/16 Erin Campa MD [address] [place] [address] [email or web address] Primary Oncologist Medical Oncology 10/05/17 Sumi Wilson FNP [address] [place] [address] [email or web address] Nurse Practitioner Oncology 05/30/21 documented as of this encounter Additional Source Comments The information contained in this document represents components of the legal health record. It is not the complete legal health record.[facility]
--- OUTSIDE RECORDS SUMMARY | 2024-12-27 11:37 | XMS_ITS | Encounter Summary ---
Author Organization [facility] Address [address] [place] [address] [place] [address] Phone Care Team Providers Care Guest Services Officer Name Role Phone Viola Schulz MD Primary Care Provider [phone] Erin Campa MD Unavailable Sumi Wilson Unavailable [phone] Encounter Details Date Type Department Care Team (Late st Contact Info) Description 10/22/2020 Procedure Pass [facility] [address] [place] [address] Social History Tobacco Use Types Packs/Day Years [...] st Contact Info) Description 03/13/2024 Procedure Pass [facility] Breast Evaluation Center [address] [address] 03/19/2025 12:30 PM EST Appointment [facility] Breast Evaluation Center [address] [place] [address] Lorraine Navarro, MARKET ANALYSIS DIRECTOR [address] [place] [address], [place] [address] 03/19/2025 1:30 PM EST Office Visit [facility] Breast Center 15 [facility], [address] [place] [address] oLrraine Navarro, MARKET ANALYSIS DIRECTOR 15 [facility] [place] [address] [email or web address] Jocelin Callaway, MARKET ANALYSIS DIRECTOR 55 [facility] [address] [place] [address] [email or web address] documented as of this encounter Visit Diagnoses Not on filedocumented in this encounter Care Teams Guest Services Officer Relationship Specialty Start Date End Date Viola Schulz MD [address] [place] [address] 104 [place] [address] PCP - General Internal Medicine 08/17/16 Erin Campa MD [address] [place] [address] [email or web address] Primary Oncologist Medical Oncology 10/05/17 Sumi Wilson FNP [address] [place] [address] [email or web address] Nurse Practitioner Oncology 05/30/21 documented as of this encounter Additional Source Comments The information contained in this document represents components of the legal health record. It is not the complete legal health record.[facility]
--- OUTSIDE RECORDS SUMMARY | 2024-12-27 11:37 | XMS_ITS | Encounter Summary ---
Author Organization [facility] Address [address] [place] [address] [place] [address] Phone Care Team Providers Care Benefits Specialist Recruiter Name Role Phone Viola Schulz MD Primary Care Provider [phone] Erin Campa MD Unavailable Sumi Wilson Unavailable [phone] Encounter Details Date Type Department Care Team (Late st Contact Info) Description 03/27/2021 Procedure Pass [facility] [address] [place] [address] Social History Tobacco Use Types Packs/Day Years [...] [facility] Breast Evaluation Center [address] [address] 03/19/2025 12:30 PM EST Appointment [facility] Breast Evaluation Center [address] [place] [address] Lorraine Navarro, COMMUNITY THEATER ACTOR [address] [place] [address], [place] [address] 03/19/2025 1:30 PM EST Office Visit [facility] 15 [facility], [address] [place] [address] Lorraine Navarro, COMMUNITY THEATER ACTOR 15 [facility] [place] [address] [email or web address] Jocelin Callaway, COMMUNITY THEATER ACTOR 55 [facility] [address] [place] [address] [email or web address] documented as of this encounter Visit Diagnoses Not on filedocumented in this encounter Care Teams Benefits Specialist Recruiter Relationship Specialty Start Date End Date Viola Schulz MD [address] [place] [address] 104 [place] [address] PCP - General Internal Medicine 08/17/16 Erin Campa MD [address] [place] [address] [email or web address] Primary Oncologist Medical Oncology 10/05/17 Sumi Wilson FNP [address] [place] [address] [email or web address] Nurse Practitioner Oncology 05/30/21 documented as of this encounter Additional Source Comments The information contained in this document represents components of the legal health record. It is not the complete legal health record.[facility]
--- OUTSIDE RECORDS SUMMARY | 2024-12-27 11:37 | XMS_ITS | Encounter Summary ---
Author Organization [facility] Address [address] [facility] [address] [place] [address] Phone Care Team Providers Care Tuberculosis Specialist Name Role Phone Viola Schulz MD Primary Care Provider Erin Campa MD Unavailable Sumi WilsonP Unavailable Encounter Details Date Type Department Care Team (Late st Contact Info) Description 03/27/2021 Ancillary Orders Breast Imaging, [facility] - [address], [address] [place], [place] [id number] Tisha Reynoso MD [address] [place] [address] Visit for screening mammogram Social History Tobacco Use Types Packs/Day Years [...] [facility] [address] [facility] [address] [place] [address] 03/19/2025 12:30 PM EST Appointment [facility] Breast Evaluation Center [address] [facility] [address] [place] [address] Lorraine Navarro, BUSINESS SERVICES ASSOCIATE [address] [address] [email or web address] 03/19/2025 1:30 PM EST Office [facility] [place] [address] [facility], [address] [place] [address] Lorraine Navarro, BUSINESS SERVICES ASSOCIATE [address] [address] [email or web address] Jocelin Callaway, ABIODUN 55 [facility] [place] [address] [email or web address] DU documented as of this encounter Results * BI MAMMOGRAM SCREENING WITH TOMOSYNTHESIS WITH CAD (BILATERAL) (11/27/2021 1:06 PM EDT) Anatomical Region Laterality Modality Breast Left, Breast Right, Breast Bilateral Bila teral Mammography 11/27/2021 Impressions 11/27/2021 1:46 PM EDT There is no specific mammographic evidence of malignancy. BI-RADS Category 2: Benign Finding Patient's information is entered into a reminder system with a target due date for the next mammogram. Narrative 11/27/2021 1:46 PM EDT INDICATION FOR EXAM: Screening. PROCEDURE: The following standard mammographic and tomosynthesis views were obtained: craniocaudal and mediolateral oblique. Computer-aided detection was utilized by the radiologist in the interpretation of this examination. BILATERAL MAMMOGRAM: The present study is compared to previous imaging. There are scattered fibroglandular densities. There are post lumpectomy changes in the left breast. No suspicious masses, calcifications or other abnormalities are seen in either breast. Procedure Note Willis Cueto MD, PhD - 11/27/2021 INDICATION FOR EXAM: Screening. PROCEDURE: The following standard mammographic and tomosynthesis views were obtained:craniocaudal and mediolateral oblique. Computer-aided detection wasutilized by the radiologist in the interpretation of this examination. BILATERAL MAMMOGRAM: The present study is compared to previous imaging. There are scattered fibroglandular densities. There are post lumpectomy changes in the left breast. No suspicious masses, calcifications or other abnormalities are seen ineither breast. IMPRESSION: There is no specific mammographic evidence of malignancy. BI-RADS Category 2: Benign Finding Patient's information is entered into a reminder system with a target duedate for the next mammogram. Tisha Reynoso MD IMG MG EXAMS Final Result documented in this encounter Visit Diagnoses Diagnosis Visit for screening mammogram Visit for screening mammogram documented in this encounter Care Teams Tuberculosis Specialist Relationship Specialty Start Date End Date Viola Schulz MD [address] [place] [address] PCP - General Internal Medicine 08/17/16 Erin Campa MD [address] [place] [address] Primary Oncologist Medical Oncology 10/05/17 Sumi Wilson FNP [address] [place] [address] Nurse Practitioner Oncology 05/30/21 documented as of this encounter Additional Source Comments The information contained in this document represents components of the legal health record. It is not the complete legal health record.[facility]
--- OUTSIDE RECORDS SUMMARY | 2024-12-27 11:37 | XMS_ITS | Encounter Summary ---
Author Organization [facility] Address [address] [facility] [address] [place] [address] Phone Care Team Providers Care Overseamer Name Role Phone Kay Russ MD Primary Care Provider Viola Schulz MD Primary Care Provider [phone] Erin Campa MD Unavailable Sumi Wilson Unavailable Encounter Details Date Type Department Care Team (Late st Contact Info) Description 08/06/2016 Telephone [facility] 70 [facility] 101 [place], [place] [id number] Key Lamb PA 800 [place] [address] Social History Tobacco Use Types Packs/Day Years [...] st Contact Info) Description 03/13/2024 Procedure Pass [facility] Breast Evaluation Center [address] [facility] [address] [place] [address] 03/19/2025 12:30 PM EST Appointment [facility] [address] [facility] [address] [place] [address] Lorraine Navarro, BELT REPAIRER [address] [address] [email or web address] 03/19/2025 1:30 PM EST Office Visit [facility] Breast [facility] [address] [facility], [address] [place] [address] Lorraine Navarro, BELT REPAIRER [address] [address] [email or web address] Jocelin Callaway, BELT REPAIRER [address] [place] [address] [email or web address] documented as of this encounter Visit Diagnoses Not on filedocumented in this encounter Care Teams Overseamer Relationship Specialty Start Date End Date Kay Russ MD PCP - General Family Medicine 07/08/16 08/16/16 Viola Schulz MD [address] [place] [address] PCP - General Internal Medicine 08/17/16 Erin Campa MD [address] [place] [address] [email or web address] Primary Oncologist Medical Oncology 10/05/17 Sumi Wilson FNP 30 [place] [address] Nurse Practitioner Oncology 05/30/21 documented as of this encounter Additional Source Comments The information contained in this document represents components of the legal health record. It is not the complete legal health record.[facility]
--- OUTSIDE RECORDS SUMMARY | 2024-12-27 11:37 | XMS_ITS | Encounter Summary ---
Author Organization [facility] Address [facility]ly [facility] [employer] [address] [address] Phone Care Team Providers Care State Trooper Name Role Phone Viola Schulz MD Primary Care Provider [phone] Erin Campa MD Unavailable Sumi Wilson Unavailable [phone] Reason for Referral * Physical Therapy (Routine) - Closed Specialty Diagnoses / Procedures Referred By Jac ragland Referred To Contact Physical Therapy Diagnoses Encounter for rehabilitation System, Provider Not In, [facility] [id number] [place] [address] Phone: tel: Referral ID Status Reason Start Date Expiration Date Visits Re quested Visits Authorized [id number] Closed 04/24/2017 04/24/2018 1 1 Encounter Details Date Type Department Care Team (Latest Contact Info) Description 04/24/2017 Transcribe Orders [facility] 8 [place] [address] Yolande Villanueva NP [address] [place] [address] Encounter for rehabilitation (Primary Dx) Social History Tobacco Use Types [...] st Contact Info) Description 03/13/2024 Procedure Pass [facility] Breast Evaluation [address] [address] 03/19/2025 12:30 PM EST Appointment [facility] Breast Evaluation [address] [address] Lorraine Navarro, WATER TENDER [address] [address] [email or web address] 03/19/2025 1:30 PM EST Office Visit [facility] Breast [address], [address] [address] Lorraine Navarro, WATER TENDER [address] [place] [address] [email or web address] Jocelin Callaway, WATER TENDER [address] [place] [address] [email or web address] Scheduled Referrals Name Type Priority Associated Diagnoses Orde r Schedule Ambulatory referral to [facility] Physical Therapy Outpatient Referral Routine Encounter for rehabilitation Ordered: 04/24/2017 documented as of this encounter Visit Diagnoses Diagnosis Encounter for rehabilitation- Primary documented in this encounter Care Teams State Trooper Relationship Specialty Start Date End Date Viola Schulz MD [address] [place] [address] PCP - General Internal Medicine 08/17/16 Erin Campa MD [address] [place] [address] [email or web address] Primary Oncologist Medical Oncology 10/05/17 Sumi Wilson FNP [address] [place] [address] [email or web address] Nurse Practitioner Oncology 05/30/21 documented as of this encounter Additional Source Comments The information contained in this document represents components of the legal health record. It is not the complete legal health record.[facility]
--- OUTSIDE RECORDS SUMMARY | 2024-12-27 11:37 | XMS_ITS | Encounter Summary ---
Author Organization [facility] Address [address] [place] [address] [place] [address] Phone Care Team Providers Care Depositing Machine Operator Name Role Phone Viola Schulz MD Primary Care Provider [phone] Erin Campa MD Unavailable [phone] Sumi Wilson Unavailable [phone] Encounter Details Date Type Department Care Team (Late st Contact Info) Description 12/09/2016 Procedure Pass [facility], Breast Ultrasound [address] [place] [id number] Social History Tobacco Use Types Packs/Day Years [...] [facility] [address] [place] [address] 03/19/2025 12:30 PM EST Appointment [facility] Breast Evaluation Center [address] [place] [address] 240 [place] [address] Lorraine Navarro, ADVENTURE GUIDE [address] [address] 03/19/2025 1:30 PM EST Office Visit [facility] 15 [facility], [address] [place] [address] Lorraine Navarro, ADVENTURE GUIDE 15 [facility] [address] [place] [address] [email or web address] Jocelin Callaway, ADVENTURE GUIDE 55 [facility] 7 [place] [address] [email or web address] documented as of this encounter Visit Diagnoses Not on filedocumented in this encounter Care Teams Depositing Machine Operator Relationship Specialty Start Date End Date Viola Schulz MD [address] [place] [address] 104 [place] [address] PCP - General Internal Medicine 08/17/16 Erin Campa MD [address] [place] [address] [email or web address] Primary Oncologist Medical Oncology 10/05/17 Sumi Wilson FNP 30 [place] [address] [email or web address] Nurse Practitioner Oncology 05/30/21 documented as of this encounter Additional Source Comments The information contained in this document represents components of the legal health record. It is not the complete legal health record.[facility]
--- OUTSIDE RECORDS SUMMARY | 2024-12-27 11:37 | XMS_ITS | Encounter Summary ---
Author Organization [facility] Address Count includes the [facility] [address] [place] [address] Phone Care Team Providers Care Greens Planter Name Role Phone Viola Schulz MD Primary Care Provider [phone] Erin Campa MD Unavailable [phone] Sumi Wilson Unavailable [phone] Encounter Details Date Type Department Care Team (Late st Contact Info) Description 10/06/2018 Ancillary Orders [facility] [address] [place] [address], [address] [place] [address] Angelina Sarmiento MD [address] [place] [address] [email or web address] Ductal carcinoma in situ (DCIS) of left breast Social History Tobacco Use Types Packs/Day Years [...] st Contact Info) Description 03/13/2024 Procedure Pass [facility] [address] [place] [address] [address] [place] [address] 03/19/2025 12:30 PM EST Appointment [facility] [address] [facility] [address] [place] [address] Lorraine Navarro, OFFICE NURSE PRACTITIONER [address] [address] [email or web address] 03/19/2025 1:30 PM EST Office Visit [facility] [address] [facility], [address] [place] [address] Lorraine Navarro, OFFICE NURSE PRACTITIONER [address] [address] [email or web address] Jocelin Callaway, ABIODUN [address] [place] [address] [address] [email or web address] documented as of this encounter Results * BI MAMMOGRAM SCREENING WITH TOMOSYNTHESIS WITH CAD (BILATERAL) (10/06/2018 1:35 PM EDT) Anatomical Region Laterality Modality Breast Left, Breast Right, Breast Bilateral Bila teral Mammography 10/06/2018 Impressions 10/06/2018 1:39 PM EDT There is no specific mammographic evidence of malignancy. BI-RADS Category 2: Benign Finding Patient's information is entered into a reminder system with a target due date for the next mammogram. Narrative 10/06/2018 1:39 PM EDT INDICATION FOR EXAM: Screening. PROCEDURE: [...] are seen in either breast. Procedure Note Sly Gage MD - 10/06/2018 INDICATION FOR EXAM: Screening. PROCEDURE: The following [...] a target duedate for the next mammogram. 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 It is not the complete legal health record.[facility]
--- OUTSIDE RECORDS SUMMARY | 2024-12-27 11:37 | XMS_ITS | Clinical Summary ---
Author Organization [facility] Address [address] [place] [address] Care Team Providers Care Power Superintendent Name Role Phone Unavailable Primary Care Provider Unavailabl e Social History Tobacco Use Types Packs/Day Years Used Date Smoking Tobacco: Never Assessed Comments Unknown Sex and Gender Information Value Date Recorded Sex Assigned at Not on file Legal Sex Female 2:38 PM EST Gender Identity Not on file Sexual Orientation Not on file Plan of Treatment Upcoming Encounters Date Type Department Care Team (Late st Contact Info) Description 12/27/2024 12:00 PM EDT Procedure visit Carmen Holloway MD [place] [address] [place] [address] Carmen Holloway MD [address] [place] [address] Health Maintenance Due Date Last Done Comments Breast Cancer Screening 1969 DTaP,Tdap,and Td Vaccines (1 - Tdap) 1988 Hepatitis B Vaccines (1 of 3 - 19+ 3-dose series) 1988 Cervical Cancer Screening: P ap Smear 1990 Pneumococcal Vaccine: 50+ Ye ars (1 of 1 - PCV) 10/27/2019 Zoster Vaccines (1 of 2) 10/27/2019 Colorectal Cancer Screening: Colonoscopy 03/11/2022 HIV Screening 03/11/2022 Hepatitis C Screening 03/11/2022 Social Influencers of Health Screening 03/11/2022 Depression Screening 04/12/2024 COVID-19 Vaccine (1 - 2023-2 5 season) 2024 Influenza Vaccine (#1) 2024 HIB Vaccines Aged Out No longer eligi ble based on patient's age to complete this topic HPV Vaccines Aged Out No longer eligi ble based on patient's age to complete this topic Hepatitis A Vaccines Aged Out No long er eligible based on patient's age to complete this topic IPV Vaccines Aged Out No longer eligi ble based on patient's age to complete this topic MMR Vaccines Aged Out No longer eligi ble based on patient's age to complete this topic Meningococcal ACWY Vaccine Aged Out N o longer eligible based on patient's age to complete this topic Meningococcal B Vaccine Aged Out No l onger eligible based on patient's age to complete this topic RSV Immunization Patients Un maura 20 months Aged Out No longer eligible b ased on patient's age to complete this topic Varicella Vaccines Aged Out No longer eligible based on patient's age to complete this topic
== END 2024-12-27 09:51 | disposition home or self-care (01) ==
LOC: HO.HMGAL 09:48
PROVIDERS: PCP Internal Medicine; Visit Provider Registered Nurse Emergency
DX: J30.89 Other allergic rhinitis (principal)
CPT/HCPCS: 95117; 95165

== ENCOUNTER 2025-01-24 10:50 | Outpatient (AMB) | payer OTHER, SELFPAY ==
--- OUTSIDE RECORDS SUMMARY | 2011-07-10 | XMS_ITS | Encounter Summary ---
Author Organization [facility] Address [address] [facility] [address] [place] [address] Phone Care Team Providers Care Photo Finish Photographer Name Role Phone Unavailable Primary Care Provider Unavailabl e Encounter Details Date Type Department Care Team (Late st Contact Info) Description 07/10/2011 Hospital Encounter [facility] IMG OUTSIDE IM 2013 [place] [address] System, Provider Not In, PhD [address] [address] Social History Tobacco Use Types Packs/Day Years [...] st Contact Info) Description 03/13/2024 Procedure Pass [facility] Breast Evaluation Center [address] [facility] [address] [place] [address] 03/19/2025 12:30 PM EST Appointment [facility] [address] [facility] [address] [place] [address] Lorraine Navarro, IRON LAUNDER OPERATOR [address] [address] [email or web address] 03/19/2025 1:30 PM EST Office Visit [facility] [address] [facility], [address] [place] [address] Lorraine Navarro, IRON LAUNDER OPERATOR [address] [address] [email or web address] Jocelin Callaway, IRON LAUNDER OPERATOR [address] [address] [email or web address] documented as of this encounter Procedures Procedure Name Priority Date/Time Associated Diagnosis Comments BI MAMMOGRAM OUTSIDE (NO INTERPRETATION) Routine 07/10/2011 12:00 AM EDT documented in this encounter Results * Mammogram Outside (No Interpretation) (07/10/2011 12:00 AM EDT) Narrative [facility] IMG INTERFACES - 12/16/2016 5:33 PM EDT This study is for PACS storage only and not for interpretation. us Provider Not In System PhD IMG OUTSIDE IMAGING W /OUT INTERPRETATION Final Result [facility] IMG INTERFACES documented in this encounter Visit Diagnoses Not on filedocumented in this encounter Additional Source Comments The information contained in this document represents components of the legal health record. It is not the complete legal health record.[facility]
--- OUTSIDE RECORDS SUMMARY | 2014-05-23 01:00 | XMS_ITS | Encounter Summary ---
Author Organization [facility] Address [address] [facility] [address] [place] [address] Phone Care Team Providers Care Assessment Technician Name Role Phone Unavailable Primary Care Provider Unavailabl e Encounter Details Date Type Department Care Team (Late st Contact Info) Description 05/23/2014 Hospital Encounter [facility] IMG OUTSIDE IM 2013 [place] [address] System, Provider Not In, PhD [address] [address] Social History Tobacco Use Types Packs/Day Years [...] st Contact Info) Description 03/13/2024 Procedure Pass [facility] [address] [facility] [address] [place] [address] 03/19/2025 12:30 PM EST Appointment [facility] [address] [facility] [address] [place] [address] Lorraine Navarro, SHAPER AND PRESSER [address] [address] [email or web address] 03/19/2025 1:30 PM EST Office Visit [facility] [address] [facility], [address] [place] [address] Lorraine Navarro, SHAPER AND PRESSER [address] [address] [email or web address] Jocelin Callaway, SHAPER AND PRESSER [address] [address] [email or web address] documented as of this encounter Procedures Procedure Name Priority Date/Time Associated Diagnosis Comments BI MAMMOGRAM OUTSIDE (NO INTERPRETATION) Routine 05/23/2014 12:00 AM EST documented in this encounter Results * Mammogram Outside (No Interpretation) (05/23/2014 12:00 AM EST) Narrative [facility] IMG INTERFACES - 12/16/2016 5:28 PM EDT This study is for PACS storage only and not for interpretation. us Provider Not In System PhD IMG OUTSIDE IMAGING W /OUT INTERPRETATION Final Result [facility] IMG INTERFACES documented in this encounter Visit Diagnoses Not on filedocumented in this encounter Additional Source Comments The information contained in this document represents components of the legal health record. It is not the complete legal health record.[facility]
--- OUTSIDE RECORDS SUMMARY | 2014-05-31 01:00 | XMS_ITS | Encounter Summary ---
Author Organization [facility] Address [address] [facility] [address] [place] [address] Phone Care Team Providers Care Sieve Maker Name Role Phone Unavailable Primary Care Provider Unavailabl e Encounter Details Date Type Department Care Team (Late st Contact Info) Description 05/31/2014 Hospital Encounter [facility] IMG OUTSIDE IM 2013 [place] [address] System, Provider Not In, PhD [address] [address] Social History Tobacco Use Types Packs/Day Years [...] st Contact Info) Description 03/13/2024 Procedure Pass [facility] [address] [facility] [address] [place] [address] 03/19/2025 12:30 PM EST Appointment [facility] [address] [facility] [address] [place] [address] Lorraine Navarro, VESSEL LINER [address] [address] [email or web address] 03/19/2025 1:30 PM EST Office Visit [facility] [address] [facility], [address] [place] [address] Lorraine Navarro, VESSEL LINER [address] [address] [email or web address] Jocelin Callaway, VESSEL LINER [address] [address] [email or web address] documented as of this encounter Procedures Procedure Name Priority Date/Time Associated Diagnosis Comments BI MAMMOGRAM OUTSIDE (NO INTERPRETATION) Routine 05/31/2014 12:00 AM EST documented in this encounter Results * Mammogram Outside (No Interpretation) (05/31/2014 12:00 AM EST) Narrative [facility] IMG INTERFACES - 12/16/2016 5:23 PM EDT This study is for PACS storage only and not for interpretation. us Provider Not In System PhD IMG OUTSIDE IMAGING W /OUT INTERPRETATION Final Result [facility] IMG INTERFACES documented in this encounter Visit Diagnoses Not on filedocumented in this encounter Additional Source Comments The information contained in this document represents components of the legal health record. It is not the complete legal health record.[facility]
--- OUTSIDE RECORDS SUMMARY | 2014-05-31 01:15 | XMS_ITS | Encounter Summary ---
Author Organization [facility] Address [address] [facility] [address] [place] [address] Phone Care Team Providers Care Sql Tech Name Role Phone Unavailable Primary Care Provider Unavailabl e Encounter Details Date Type Department Care Team (Late st Contact Info) Description 05/31/2014 12:15 AM [facility] Hospital Encounter [facility] IMG OUTSIDE IM 2013 [place] [address] System, Provider Not In, [place] [address] Social History Tobacco Use Types Packs/Day Years [...] st Contact Info) Description 03/13/2024 Procedure Pass [facility] Breast Evaluation Center [address] [facility] [address] [place] [address] 03/19/2025 12:30 PM EST Appointment [facility] [address] [facility] [address] [place] [address] Lorraine Navarro, SUPERINTENDENT CONTAINER TERMINAL [address] [address] [email or web address] 03/19/2025 1:30 PM EST Office Visit [facility] [address] [facility], [address] [place] [address] Lorraine Navarro, SUPERINTENDENT CONTAINER TERMINAL [address] [address] [email or web address] Jocelin Callaway, SUPERINTENDENT CONTAINER TERMINAL 55 [facility] 7 [place] [address] [email or web address] documented as of this encounter Procedures Procedure Name Priority Date/Time Associated Diagnosis Comments BI US BREAST OUTSIDE (NO INTERPRETATION) Routine 05/31/2014 12:15 AM EST documented in this encounter Results * US Breast Outside (No Interpretation) (05/31/2014 12:15 AM EST) Narrative [facility] IMG INTERFACES - 12/16/2016 5:25 PM EDT This study is for PACS storage only and not for interpretation. us Provider Not In System PhD IMG OUTSIDE IMAGING W /OUT INTERPRETATION Final Result [facility] IMG INTERFACES documented in this encounter Visit Diagnoses Not on filedocumented in this encounter Additional Source Comments The information contained in this document represents components of the legal health record. It is not the complete legal health record.[facility]
--- OUTSIDE RECORDS SUMMARY | 2014-06-04 01:00 | XMS_ITS | Encounter Summary ---
Author Organization [facility] Address [address] [facility] [address] [place] [address] Phone Care Team Providers Care Manager Control Name Role Phone Unavailable Primary Care Provider Unavailabl e Encounter Details Date Type Department Care Team (Late st Contact Info) Description 06/04/2014 Hospital Encounter [facility] IMG OUTSIDE IM 2013 [place] [address] System, Provider Not In, PhD [address] [address] Social History Tobacco Use Types Packs/Day Years [...] st Contact Info) Description 03/13/2024 Procedure Pass [facility] Breast Evaluation Center [address] [facility] [address] [place] [address] 03/19/2025 12:30 PM EST Appointment [facility] [address] [facility] [address] [place] [address] Lorraine Navarro, ASSISTANT ENGINEER [address] [address] [email or web address] 03/19/2025 1:30 PM EST [facility] [address] [facility], [address] [place] [address] Lorraine Navarro, ASSISTANT ENGINEER [address] [address] [email or web address] Jocelin Callaway, ASSISTANT ENGINEER [address] [address] [email or web address] documented as of this encounter Procedures Procedure Name Priority Date/Time Associated Diagnosis Comments BI MAMMOGRAM OUTSIDE (NO INTERPRETATION) Routine 06/04/2014 12:00 AM EST documented in this encounter Results * Mammogram Outside (No Interpretation) (06/04/2014 12:00 AM EST) Narrative [facility] IMG INTERFACES - 12/16/2016 5:18 PM EDT This study is for PACS storage only and not for interpretation. us Provider Not In System PhD IMG OUTSIDE IMAGING W /OUT INTERPRETATION Final Result [facility] IMG INTERFACES documented in this encounter Visit Diagnoses Not on filedocumented in this encounter Additional Source Comments The information contained in this document represents components of the legal health record. It is not the complete legal health record.[facility]
--- OUTSIDE RECORDS SUMMARY | 2014-06-04 01:15 | XMS_ITS | Encounter Summary ---
Author Organization [facility] Address [address] [facility] [address] [place] [address] Phone Care Team Providers Care Hob Grinder Name Role Phone Unavailable Primary Care Provider Unavailabl e Encounter Details Date Type Department Care Team (Late st Contact Info) Description 06/04/2014 12:15 AM [facility] IMG OUTSIDE IM [address] [place] [address] System, Provider [place] In, [place] [address] Social History Tobacco Use Types Packs/Day Years [...] st Contact Info) Description 03/13/2024 Procedure Pass [facility] Breast Evaluation Center [address] [facility] [place] [address] 03/19/2025 12:30 PM EST Appointment [facility] [address] [facility] [place] [address] Lorraine Navarro, SHALE PROCESSING TECHNICIAN [address] [address] [email or web address] 03/19/2025 1:30 PM EST Office Visit [facility] Breast Center [address] [facility], [address] [place] [address] Lorraine Navarro, SHALE PROCESSING TECHNICIAN [address] [address] [email or web address] Jocelin Callaway, SHALE PROCESSING TECHNICIAN [address] [address] [email or web address] documented as of this encounter Procedures Procedure Name Priority Date/Time Associated Diagnosis Comments BI US BREAST OUTSIDE (NO INTERPRETATION) Routine 06/04/2014 12:15 AM EST documented in this encounter Results * US Breast Outside (No Interpretation) (06/04/2014 12:15 AM EST) Narrative [facility] IMG INTERFACES - 12/16/2016 5:20 PM EDT This study is for PACS storage only and not for interpretation. us Provider Not In System PhD IMG OUTSIDE IMAGING W /OUT INTERPRETATION Final Result [facility] IMG INTERFACES documented in this encounter Visit Diagnoses Not on filedocumented in this encounter Additional Source Comments The information contained in this document represents components of the legal health record. It is not the complete legal health record.[facility]
--- OUTSIDE RECORDS SUMMARY | 2014-11-21 | XMS_ITS | Encounter Summary ---
Author Organization [facility] Address [address] [facility] [address] [place] [address] Phone Care Team Providers Care Chief Lifestyle Officer Name Role Phone Unavailable Primary Care Provider Unavailabl e Encounter Details Date Type Department Care Team (Late st Contact Info) Description 11/21/2014 Hospital Encounter [facility] IMG OUTSIDE IM 2013 [place] [address] System, Provider Not In, PhD [address] [address] Social History Tobacco Use Types Packs/Day Years [...] st Contact Info) Description 03/13/2024 Procedure Pass [facility] Breast Evaluation Center [address] [facility] [place] [address] 03/19/2025 12:30 PM EST Appointment [facility] [address] [place] [address] Lorraine Navarro, SPINNING MULE OPERATOR [address] [address] [email or web address] 03/19/2025 1:30 PM EST Office Visit [facility] [place] [address] [facility], [address] [place] [address] Lorraine Navarro, SPINNING MULE OPERATOR [address] [address] [email or web address] Jocelin Callaway, SPINNING MULE OPERATOR [address] [address] [email or web address] documented as of this encounter Procedures Procedure Name Priority Date/Time Associated Diagnosis Comments BI US BREAST OUTSIDE (NO INTERPRETATION) Routine 11/21/2014 12:00 AM EDT documented in this encounter Results * US Breast Outside (No Interpretation) (11/21/2014 12:00 AM EDT) Narrative [facility] IMG INTERFACES - 12/16/2016 5:15 PM EDT This study is for PACS storage only and not for interpretation. us Provider Not In System PhD IMG OUTSIDE IMAGING W /OUT INTERPRETATION Final Result [facility] IMG INTERFACES documented in this encounter Visit Diagnoses Not on filedocumented in this encounter Additional Source Comments The information contained in this document represents components of the legal health record. It is not the complete legal health record.[facility]
--- OUTSIDE RECORDS SUMMARY | 2015-09-24 | XMS_ITS | Encounter Summary ---
Author Organization [facility] Address [address] [facility] [address] [place] [address] Phone Care Team Providers Care Airplane Electrical Repairer Name Role Phone Unavailable Primary Care Provider Unavailabl e Encounter Details Date Type Department Care Team (Late st Contact Info) Description 09/24/2015 Hospital Encounter [facility] IMG OUTSIDE IM 2013 [place] [address] System, Provider Not In, PhD [address] [address] Social History Tobacco Use Types Packs/Day Years [...] Info) Description 03/13/2024 Procedure Pass [facility] Breast Evaluation Center [address] [facility] [address] [place] [address] 03/19/2025 12:30 PM EST Appointment [facility] [address] [place] [address] Lorraine Navarro, ECONOMICS LECTURER [address] [address] [email or web address] 03/19/2025 1:30 PM EST Office Visit [facility] Breast [facility] [address] [facility], [address] [place] [address] Lorraine Navarro, ECONOMICS LECTURER [address] [address] [email or web address] Jocelin Callaway, ECONOMICS LECTURER [address] [address] [email or web address] documented as of this encounter Procedures Procedure Name Priority Date/Time Associated Diagnosis Comments BI MAMMOGRAM OUTSIDE (NO INTERPRETATION) Routine 09/24/2015 12:00 AM EDT documented in this encounter Results * Mammogram Outside (No Interpretation) (09/24/2015 12:00 AM EDT) Narrative [facility] IMG INTERFACES - 12/16/2016 5:10 PM EDT This study is for PACS storage only and not for interpretation. us Provider Not In System PhD IMG OUTSIDE IMAGING W /OUT INTERPRETATION Final Result [facility] IMG INTERFACES documented in this encounter Visit Diagnoses Not on filedocumented in this encounter Additional Source Comments The information contained in this document represents components of the legal health record. It is not the complete legal health record.[facility]
--- OUTSIDE RECORDS SUMMARY | 2025-01-24 13:11 | XMS_ITS | Encounter Summary ---
Author Organization [facility] Address [address] [place] [address] Phone Care Team Providers Care Security Advisor Name Role Phone Viola Schulz MD Primary Care Provider [phone] Erin Campa MD Unavailable Sumi Wilson Unavailable [phone] Encounter Details Date Type Department Care Team (Late st Contact Info) Description 11/12/2022 Procedure Pass [facility] Breast Evaluation Center [address] [facility] [address] [place] [address] Social History Tobacco Use Types Packs/Day Years [...] Contact Info) Description 03/13/2024 Procedure Pass [facility] Breast Evaluation [place] [address] [facility] [address] [place] [address] 03/19/2025 12:30 PM EST Appointment [facility] Breast Evaluation [place] [address] [address] Lorraine Navarro, REGIONAL PROGRAM MANAGER [address] [address] [email or web address] 03/19/2025 1:30 PM EST Office Visit [facility] [address] [facility], [address] [place] [address] Lorraine Navarro, REGIONAL PROGRAM MANAGER [address] [address] [email or web address] Joeclin Callaway, REGIONAL PROGRAM MANAGER [address] [place] [address] [email or web address] documented as of this encounter Visit Diagnoses Not on filedocumented in this encounter Care Teams Security Advisor Relationship Specialty Start Date End Date Viola Schulz MD [address] [place] [address] PCP - General Internal Medicine 08/17/16 Erin Campa MD [address] [place] [address] [email or web address] Primary Oncologist Medical Oncology 10/05/17 Sumi Wilson FNP [address] [place] [address] Nurse Practitioner Oncology 05/30/21 documented as of this encounter Additional Source Comments The information contained in this document represents components of the legal health record. It is not the complete legal health record.[facility]
--- OUTSIDE RECORDS SUMMARY | 2025-01-24 13:11 | XMS_ITS | Encounter Summary ---
Author Organization [facility] Address [address] [place] [address] [place] [address] Phone Care Team Providers Care Certified Nurse Midwife Name Role Phone Viola Schulz MD Primary Care Provider [phone] Erin Campa MD Unavailable Sumi Wilson Unavailable [phone] Encounter Details Date Type Department Care Team (Late st Contact Info) Description 12/18/2016 Procedure Pass [facility] Breast [facility], [facility] [address] [place] [address] Social History Tobacco Use Types Packs/Day Years [...] [facility] [address] [address] 03/19/2025 12:30 PM EST Appointment [facility] Breast Evaluation Center [address] [place] [address] 240 [place] [address] Lorraine Navarro, PUMP AND STILL OPERATOR [address] [place] [address] 03/19/2025 1:30 PM EST Office Visit [facility] Breast Center 15 [facility], [address] [place] [address] Lorraine Navarro, PUMP AND STILL OPERATOR 15 [facility]450 [place] [address] [email or web address] Jocelin Callaway, PUMP AND STILL OPERATOR 55 [facility] 7 [place] [address] [email or web address] documented as of this encounter Visit Diagnoses Not on filedocumented in this encounter Care Teams Certified Nurse Midwife Relationship Specialty Start Date End Date Viola Schulz MD [address] [place] [address] 104 [place] [address] PCP - General Internal Medicine 08/17/16 Erin Campa MD [address] [place] [address] [email or web address] Primary Oncologist Medical Oncology 10/05/17 Sumi Wilson FNP [address] [place] [address] [email or web address] Nurse Practitioner Oncology 05/30/21 documented as of this encounter Additional Source Comments The information contained in this document represents components of the legal health record. It is not the complete legal health record.[facility]
--- OUTSIDE RECORDS SUMMARY | 2025-01-24 13:11 | XMS_ITS | Encounter Summary ---
Author Organization [facility] Address [address] [place] [address] Phone Care Team Providers Care Carding Machine Feeder Name Role Phone Viola Schulz MD Primary Care Provider [phone] Erin Campa MD Unavailable Sumi Wilson Unavailable [phone] Encounter Details Date Type Department Care Team (Late st Contact Info) Description 11/28/2023 Procedure Pass [facility] Breast Evaluation Center [address] [facility] [address] [place] [address] Social History Tobacco Use Types Packs/Day Years [...] st Contact Info) Description 03/13/2024 Procedure Pass [facility] Breast Evaluation [place] [address] [facility] [address] [place] [address] 03/19/2025 12:30 PM EST Appointment [facility] Breast Evaluation [place] [address] [address] Lorraine Navarro, QUILT SEWER [address] [address] [email or web address] 03/19/2025 1:30 PM EST Office Visit [facility] 15 [facility], [address] [place] [address] Lorraine Navarro, QUILT SEWER [address] [address] [email or web address] Jocelin Callaway, QUILT SEWER [address] [place] [address] [email or web address] documented as of this encounter Visit Diagnoses Not on filedocumented in this encounter Care Teams Carding Machine Feeder Relationship Specialty Start Date End Date Viola Schulz MD [address] [place] [address] PCP - General Internal Medicine 08/17/16 Erin Campa MD [address] [place] [address] [email or web address] Primary Oncologist Medical Oncology 10/05/17 Sumi Wilson FNP 30 [place] [address] Nurse Practitioner Oncology 05/30/21 documented as of this encounter Additional Source Comments The information contained in this document represents components of the legal health record. It is not the complete legal health record.[facility]
--- OUTSIDE RECORDS SUMMARY | 2025-01-24 13:11 | XMS_ITS | Encounter Summary ---
Author Organization [facility] Address [address] [place] [address] [place] [address] Phone Care Team Providers Care Teacher Dancing Name Role Phone Viola Schulz MD Primary Care Provider [phone] Erin Campa MD Unavailable Sumi Wilson Unavailable [phone] Encounter Details Date Type Department Care Team (Late st Contact Info) Description 08/24/2016 Procedure Pass [facility] PERIOPERATIVE DEPT 2013 [place] [address] Social History Tobacco Use Types Packs/Day Years [...] [facility] [address] [place] [address] 03/19/2025 12:30 PM EST Appointment [facility] [address] [place] [address] [address] [place] [address] Lorraine Navarro, QUALITY ASSURANCE LEAD [address] [place] [address] 03/19/2025 1:30 PM EST Office Visit [facility] 15 [facility], [address] [place] [address] Lorraine Navarro, QUALITY ASSURANCE LEAD 15 [facility] [address] [place] [address] [email or web address] Jocelin Callaway, QUALITY ASSURANCE LEAD 55 [facility] [address] [place] [address] [email or web address] documented as of this encounter Visit Diagnoses Not on filedocumented in this encounter Care Teams Teacher Dancing Relationship Specialty Start Date End Date Viola Schulz MD [address] [place] [address] [address] [place] [address] PCP - General Internal Medicine 08/17/16 Erin Campa MD 30 [place] [address] [email or web address] Primary Oncologist Medical Oncology 10/05/17 Sumi Wilson FNP 30 [place] [address] [email or web address] Nurse Practitioner Oncology 05/30/21 documented as of this encounter Additional Source Comments The information contained in this document represents components of the legal health record. It is not the complete legal health record.[facility]
--- OUTSIDE RECORDS SUMMARY | 2025-01-24 13:12 | XMS_ITS | Encounter Summary ---
Author Organization [facility] Address [address] [employer] [facility] [address] [place] [address] Phone Care Team Providers Care Contract Manager Name Role Phone Kay Russ MD Primary Care Provider Viola Schulz MD Primary Care Provider [phone] Erin Campa MD Unavailable Sumi Wilson Unavailable Encounter Details Date Type Department Care Team (Late st Contact Info) Description 08/06/2016 Telephone [facility] [address] [facility] 101 [place], [place] [id number] Key Lamb PA 800 [place] [address] Social History Tobacco Use Types Packs/Day Years [...] st Contact Info) Description 03/13/2024 Procedure Pass [facility] 15 [facility] [address] [place] [address] 03/19/2025 12:30 PM EST Appointment [facility] 15 [facility] [address] [place] [address] Lorraine Navarro, CARDIOLOGY TECHNICIAN [address] [address] [email or web address] 03/19/2025 1:30 PM EST Office Visit [facility] 15 [facility], [address] [place] [address] Lorraine Navarro, CARDIOLOGY TECHNICIAN [address] [address] [email or web address] Jocelin Callaway, CARDIOLOGY TECHNICIAN [address] [place] [address] [email or web address] documented as of this encounter Visit Diagnoses Not on filedocumented in this encounter Care Teams Contract Manager Relationship Specialty Start Date End Date Kay Russ MD PCP - General Family Medicine 07/08/16 08/16/16 Viola Schulz MD [address] [place] [address] PCP - General Internal Medicine 08/17/16 Erin Campa MD [address] [place] [address] [email or web address] Primary Oncologist Medical Oncology 10/05/17 Sumi Wilson FNP 30 [place] [address] Nurse Practitioner Oncology 05/30/21 documented as of this encounter Additional Source Comments The information contained in this document represents components of the legal health record. It is not the complete legal health record.[facility]
--- OUTSIDE RECORDS SUMMARY | 2025-01-24 13:12 | XMS_ITS | Encounter Summary ---
Author Organization [facility] Address 399 [facility] [address] [place] [address] Phone Care Team Providers Care Career Services Officer Name Role Phone Viola Schulz MD Primary Care Provider Erin Campa MD Unavailable Sumi WilsonP Unavailable [phone] Encounter Details Date Type Department Care Team (Late st Contact Info) Description 03/27/2021 Ancillary Orders Breast Imaging, [facility] - [address], [address] [place], [place] [phone] Tisha Reynoso MD [address] [place] [address] Visit for screening mammogram Social History Tobacco [...] [facility] 15 [facility] [address] [place] [address] 03/19/2025 12:30 PM EST Appointment [facility] 15 [facility] [address] [place] [address] Lorraine Navarro, DONATION SPECIALIST [address] [address] [email or web address] 03/19/2025 1:30 PM EST Office Visit [facility] [place] 15 [facility], [address] [place] [address] Lorraine Navarro, DONATION SPECIALIST [address] [address] [email or web address] Jocelin Callaway, ABIODUN 55 [facility] 7 [place] [address] [email or web address] documented as of this encounter Results [...] mammogram documented in this encounter Care Teams Career Services Officer Relationship Specialty Start Date End Date Viola Schulz MD [address] [place] [address] PCP - General Internal Medicine 08/17/16 Erin Campa MD [address] [place] [address] Primary Oncologist Medical Oncology 10/05/17 Sumi Wilson FNP [address] [place] [address] Nurse Practitioner Oncology 05/30/21 documented as of this encounter Additional Source Comments The information contained in this document represents components of the legal health record. It is not the complete legal health record.[facility]
--- OUTSIDE RECORDS SUMMARY | 2025-01-24 13:12 | XMS_ITS | Encounter Summary ---
Author Organization [facility] Address [address] [place] [address] Phone Care Team Providers Care Still Photographer Name Role Phone Kay Russ MD Primary Care Provider Viola Schulz MD Primary Care Provider [phone] Erin Campa MD Unavailable [phone] Sumi Wilson Unavailable [phone] Encounter Details Date Type Department Care Team (Late st Contact Info) Description 08/06/2016 Transcribe Orders [facility] LAB SPECIMEN 2013 [place] [address] Key Lamb PA 800 [place] [address] Acute cystitis with hematuria (Primary Dx) Social [...] st Contact Info) Description 03/13/2024 Procedure Pass [facility] 15 [facility] [address] [place], [place] [id number] 03/19/2025 12:30 PM EST Appointment [facility] 15 [facility] [address] [place] [address] Lorraine Navarro, PIN INSERTER REGULATOR [address] [address] [email or web address] 03/19/2025 1:30 PM EST Office Visit [facility] [place] 15 [facility], [address] [place] [address] Lorraine Navarro, PIN INSERTER REGULATOR [address] [address] [email or web address] Jocelin Callaway, PIN INSERTER REGULATOR 55 [facility] 7 [place] [address] [email or web address] documented as of this encounter Results * (ABNORMAL) Urine culture (08/06/2016 5:26 PM EDT) Specimen Source/ Description URINE CLEAN CATCH URINE [facility] Special Requests No Special Requests [facility] Culture/Test >100,000 colony forming units per ml KLEBSIELLA OXYTOCA(A) [facility] Report Status 08/08/2016 FINAL [facility] ORGANISM KLEBSIELLA OXYTOCA [facility] Urine 08/06/2016 5:26 PM EDT 08/06/2016 [...] MICROBIOLOGY - GENERAL ORDERABLE S Final Result [facility] 2013 [place] [address] documented in this encounter Visit Diagnoses Diagnosis Acute cystitis with hematuria- Primary documented in this encounter Care Teams Still Photographer Relationship Specialty Start Date End Date Kay Russ MD PCP - General Family Medicine 07/08/16 08/16/16 Viola Schulz MD [address] [place] [address] PCP - General Internal Medicine 08/17/16 Erin Campa MD [address] [place] [address] Primary Oncologist Medical Oncology 10/05/17 Sumi Wilson FNP [address] [place] [address] Nurse Practitioner Oncology 05/30/21 documented as of this encounter Additional Source Comments The information contained in this document represents components of the legal health record. It is not the complete legal health record.[facility]
--- OUTSIDE RECORDS SUMMARY | 2025-01-24 13:12 | XMS_ITS | Encounter Summary ---
Author Organization [facility] Address [facility] [employer] [address] [address] Phone Care Team Providers Care Bone Char Kiln Operator Name Role Phone Viola Schulz MD Primary Care Provider [phone] Erin Campa MD Unavailable Sumi Wilson Unavailable [phone] Reason for Referral * Physical Therapy (Routine) - Closed Specialty Diagnoses / Procedures Referred By Jac ragland Referred To Contact Physical Therapy Diagnoses Encounter for rehabilitation System, Provider Not In, [facility] [id number] [place] [address] Phone: tel: Referral ID Status Reason Start Date Expiration Date Visits Re quested Visits Authorized [id number] Closed 04/24/2017 04/24/2018 1 1 Encounter Details Date Type Department Care Team (Latest Contact Info) Description 04/24/2017 Transcribe Orders [facility] 8 [place] [address] Yolande Villanueva NP [address] [place] [address] Encounter for rehabilitation (Primary Dx) Social History [...] st Contact Info) Description 03/13/2024 Procedure Pass [facility] Breast Evaluation [address] [address] 03/19/2025 12:30 PM EST Appointment [facility] Breast Evaluation [address] [address] Lorraine Navarro, ARMORED CABLE MACHINE OPERATOR [address] [address] [email or web address] 03/19/2025 1:30 PM EST Office Visit [facility] Breast [address], [address] [address] Lorraine Navarro, ARMORED CABLE MACHINE OPERATOR [address] [place] [address] [email or web address] Jocelin Callaway, ARMORED CABLE MACHINE OPERATOR [address] [place] [address] [email or web address] Scheduled Referrals Name Type Priority Associated Diagnoses Orde r Schedule Ambulatory referral to [facility] Physical Therapy Outpatient Referral Routine Encounter for rehabilitation Ordered: 04/24/2017 documented as of this encounter Visit Diagnoses Diagnosis Encounter for rehabilitation- Primary documented in this encounter Care Teams Bone Char Kiln Operator Relationship Specialty Start Date End Date Viola Schulz MD [address] [place] [address] PCP - General Internal Medicine 08/17/16 Erin Campa MD [address] [place] [address] [email or web address] Primary Oncologist Medical Oncology 10/05/17 Sumi Wilson FNP [address] [place] [address] [email or web address] Nurse Practitioner Oncology 05/30/21 documented as of this encounter Additional Source Comments The information contained in this document represents components of the legal health record. It is not the complete legal health record.[facility]
--- OUTSIDE RECORDS SUMMARY | 2025-01-24 13:12 | XMS_ITS | Clinical Summary ---
Author Organization [facility] Address [address] [address] Phone Care Team Providers Care Aluminum Boats Assembler Name Role Phone Viola Schulz MD Primary Care Provider [phone] Erin Campa MD Unavailable Sumi Wilson Unavailable [phone] Allergies No known active allergies Medications PARoxetine [...] (DCIS), NX, M0) - Signed by Mariela Augilera CNP on 11/02/2016 Immunizations Immunization Administration Dates [...] Contact Info) Description 03/13/2024 Procedure Pass [facility] Breast Evaluation [address] [place] [address] 03/19/2025 12:30 PM EST Appointment [facility] Breast Evaluation [address] [address] Lorraine Navarro, HOSPITAL FOOD SERVICE WORKER [address] [address] [email or web address] 03/19/2025 1:30 PM EST Office Visit [address], [address] [address] Lorraine Navarro, HOSPITAL FOOD SERVICE WORKER [address] [address] [email or web address] Jocelin Callaway, ABIODUN 55 [facility] 7 [place] [address] [email or web address] DU Health Maintenance Due Date Last Done [...] 01/31/2022, 01/13/2021, Additional history exists COVID-19 VACCINE (2024- season) 2024 01/31/2022, 07/09/2021, 02/05/2021, Additional history exists MAMMOGRAM 03/13/2026 03/13/2024, 12/12, 11/27/2021, Additional history exists RSV VACCINE (1 - 1-dose 75+ series) 2044 ZOSTER VACCINES Completed 09/17/2023, 06/18/2023 SMOKING STATUS [...] this topic Medical Devices Implanted Type Area Functional Analyst Device Identifier Shelf Expiration Date Model / Serial / Lot Mirena Iud Explanted Type Area Functional Analyst Device Identifier Shelf Expiration Date Model / [...] the results and recommendations. Viola Schulz MD IM MG EXAMS Final Result from Last 3 Months or Most Recently Relevant to Health Maintenance Insurance [facility] Care Teams Aluminum Boats Assembler Relationship Specialty Start Date End Date Viola Schulz MD [address] [place] [address] PCP - General Internal Medicine 08/17/16 Erin Campa MD [address] [place] [address] [email or web address] Primary Oncologist Medical Oncology 10/05/17 Sumi Wilson FNP [address] [place] [address] [email or web address] Nurse Practitioner Oncology 05/30/21 Additional Source Comments The information contained in this document represents components of the legal health record. It is not the complete legal health record.[facility]
--- OUTSIDE RECORDS SUMMARY | 2025-01-24 13:12 | XMS_ITS | Encounter Summary ---
Author Organization [facility] Address [address] [place] [address] [place] [address] Phone Care Team Providers Care Promotions Specialist Name Role Phone Viola Schulz MD Primary Care Provider [phone] Erin Campa MD Unavailable Sumi Wilson Unavailable [phone] Encounter Details Date Type Department Care Team (Late st Contact Info) Description 10/22/2020 Procedure Pass [facility] [address] [place] [address] Social History Tobacco Use Types Packs/Day Years [...] [facility] [address] [address] 03/19/2025 12:30 PM EST Appointment [facility] Breast Evaluation Center [address] [place] [address] Lorraine Navarro, JOURNEYMAN PRESS OPERATOR [address] [place] [address], [place] [address] 03/19/2025 1:30 PM EST Office Visit [facility] 15 [facility], [address] [place] [address] Lorraine Navarro, JOURNEYMAN PRESS OPERATOR 15 [facility] [place] [address] [email or web address] Jocelin Callaway, JOURNEYMAN PRESS OPERATOR 55 [facility] [address] 7 [place] [address] [email or web address] documented as of this encounter Visit Diagnoses Not on filedocumented in this encounter Care Teams Promotions Specialist Relationship Specialty Start Date End Date Viola Schulz MD [address] [place] [address] 104 [place] [address] PCP - General Internal Medicine 08/17/16 Erin Campa MD [address] [place] [address] [email or web address] Primary Oncologist Medical Oncology 10/05/17 Sumi Wilson FNP [address] [place] [address] [email or web address] Nurse Practitioner Oncology 05/30/21 documented as of this encounter Additional Source Comments The information contained in this document represents components of the legal health record. It is not the complete legal health record.[facility]
--- OUTSIDE RECORDS SUMMARY | 2025-01-24 13:12 | XMS_ITS | Encounter Summary ---
Author Organization [facility] Address [address] [employer] [facility] [address] [place] [address] Phone Care Team Providers Care Mortgage Processing Clerk Name Role Phone Kay Russ MD Primary Care Provider [phone] Viola Schulz MD Primary Care Provider [phone] Erin Campa MD Unavailable [phone] Sumi Wilson Unavailable Encounter Details Date Type Department Care Team (Latest Contact Info) Description 07/08/2016 Transcribe Orders [facility] LAB SPECIMEN 2013 [place], [place] [id number] Jeronimo [place] MD, ASAD [address] [address] [email or web address] Diverticulitis of bladder (Primary Dx) Social History [...] st Contact Info) Description 03/13/2024 Procedure Pass [facility] 15 [facility] [address] [place] [address] 03/19/2025 12:30 PM EST Appointment [facility] [address] [facility] [address] [place] [address] Lorraine Navarro, VETERINARY BACTERIOLOGIST [address] [address] [email or web address] 03/19/2025 1:30 PM EST Office Visit [facility] 15 [facility], [address] [place] [address] Lorraine Navarro, VETERINARY BACTERIOLOGIST [address] [address] [email or web address] Jocelin Callaway, VETERINARY BACTERIOLOGIST [address] [address] [email or web address] DU documented as of this encounter Results * (ABNORMAL) Urinalysis with sediment ([facility] ,[facility] ,[facility]) (07/08/2016 6:22 PM EDT) COLOR Yellow Yellow [facility] CLARITY Clear Clear [facility] SPECIFIC GRAVITY 1.016 1.001 - 1.030 [facility] BLOOD Negative Negative [facility] BILI Negative Negative [facility] KETONES Negative Negative [facility] GLUCOSE Negative Negative [facility] URINE PROTEIN Negative Negative [facility] PH 6.0 5 - 8 [facility] Leukocyte esterase, ur Negative Negative [facility] NITRITE Negative Negative [facility] UROBILINOGEN Negative Negative [facility] RBC <1 0 - 3 /hpf [facility] WBC 2 0 - 4 /hpf [facility] BACTERIA Few(A) NONE SEEN [facility] SQUAMOUS CELLS 1 0 - 4 [facility] Urine 07/08/2016 6:22 PM EDT 07/08/2016 7:16 PM EDT us Jeronimo Miles MD, ASAD URINE ORDERABLES Edited Res ult - Final [facility] [address] [place] [address] * (ABNORMAL) Urine culture ([facility] ,[facility] ,[facility] ,[facility] ,[facility] ,[facility]) (07/08/2016 6:22 PM EDT) Specimen Source/ Description CLEAN VOIDED SPECIMEN URINE CLEAN VOIDED SPECIMEN [facility] Special Requests No Special Requests [facility] Culture/Test >100,000 colony forming units per ml ENTEROCOCCUS FAECALIS(A) [facility] Culture/Test 10,000 to 50,000 colony forming units per ml STAPHYLOCOCCUS EPIDERMIDIS(A) [facility] Report Status 07/12/2016 FINAL [facility] ORGANISM ENTEROCOCCUS FAECALIS [facility] ORGANISM STAPHYLOCOCCUS EPIDERMIDIS [facility] Clean voided specimen 07/08/2016 6:22 PM EDT [...] MICK KUMAR Final Result Performing Organization Address City/State/[facility] de Phone Number [facility] [address] [place] [address] documented in this encounter Visit Diagnoses Diagnosis Diverticulitis of bladder- Primary Diverticulum of bladder documented in this encounter Care Teams Mortgage Processing Clerk Relationship Specialty Start Date End Date Kay Russ MD PCP - General Family Medicine 07/08/16 08/16/16 Viola Schulz MD [address] [place] [address] PCP - General Internal Medicine 08/17/16 Erin Campa MD [address] [place] [email or web address] Primary Oncologist Medical Oncology 10/05/17 Sumi Wilson FNP [address] [place] [address] [email or web address] Nurse Practitioner Oncology 05/30/21 documented as of this encounter Additional Source Comments The information contained in this document represents components of the legal health record. It is not the complete legal health record.[facility]
--- OUTSIDE RECORDS SUMMARY | 2025-01-24 13:12 | XMS_ITS | Encounter Summary ---
Author Organization [facility] Address [facility] [email or web address] [facility] [address] [place] [address] Phone Care Team Providers Care Heel Seat Filler Name Role Phone Viola Schulz MD Primary Care Provider [phone] Erin Campa MD Unavailable [phone] Sumi Wilson Unavailable [phone] Encounter Details Date Type Department Care Team (Late st Contact Info) Description 10/06/2018 Ancillary Orders [facility] [address] [place] [address], [address] [place] [address] Angelina Sarmiento MD [address] [place] [address] [email or web address] 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 03/19/2025 1:30 PM EST Office Visit [facility] 15 [facility], [address] [place] [address] Lorraine Navarro, IMAGE ARCHIVIST [address] [address] [email or web address] Jocelin Callaway, ABIODUN [address] [place] [address] [address] [email or web address] documented as of this encounter [...] breast documented in this encounter Care Teams Heel Seat Filler Relationship Specialty Start Date End Date Viola Schulz MD [address] [place] [address] PCP - General Internal Medicine 08/17/16 Erin Campa MD [address] [place] [address] Primary Oncologist Medical Oncology 10/05/17 Sumi Wilson FNP [address] [place] [address] Nurse Practitioner Oncology 05/30/21 documented as of this encounter Additional Source Comments The information contained in this document represents components of the legal health record. It is not the complete legal health record.[facility]
--- OUTSIDE RECORDS SUMMARY | 2025-01-24 13:12 | XMS_ITS | Encounter Summary ---
Author Organization [facility] Address [address] [place] [address] [place] [address] Phone Care Team Providers Care Weaving Loom Operator Name Role Phone Viola Schulz MD Primary Care Provider [phone] Erin Campa MD Unavailable Sumi Wilson Unavailable [phone] Encounter Details Date Type Department Care Team (Late st Contact Info) Description 12/18/2016 Procedure Pass [facility] PERIOPERATIVE DEPT [address] [place] [address] Social History Tobacco Use Types Packs/Day Years [...] st Contact Info) Description 03/13/2024 Procedure Pass [facility] [address] [place] [address] 03/19/2025 12:30 PM EST Appointment [facility] [address] [place] [address] 240 [place] [address] Lorraine Navarro, ECHOCARDIOGRAPH TECHNICIAN [address] [address] 03/19/2025 1:30 PM EST Office Visit [facility] 15 [facility], [address] [place] [address] Lorraine Navarro, ECHOCARDIOGRAPH TECHNICIAN 15 [facility] [address] [place] [address] [email or web address] Jocelin Callaway, ECHOCARDIOGRAPH TECHNICIAN 55 [facility] [address] [place] [address] [email or web address] documented as of this encounter Visit Diagnoses Not on filedocumented in this encounter Care Teams Weaving Loom Operator Relationship Specialty Start Date End Date Viola Schulz MD [address] [place] [address] [address] [place] [address] PCP - General Internal Medicine 08/17/16 Erin Campa MD [address] [place] [address] [email or web address] Primary Oncologist Medical Oncology 10/05/17 Sumi Wilson FNP 30 [place] [address] [email or web address] Nurse Practitioner Oncology 05/30/21 documented as of this encounter Additional Source Comments The information contained in this document represents components of the legal health record. It is not the complete legal health record.[facility]
--- OUTSIDE RECORDS SUMMARY | 2025-01-24 13:12 | XMS_ITS | Encounter Summary ---
Author Organization [facility] Address [address] [place] [address] [place] [address] Phone Care Team Providers Care Manhole Builder Name Role Phone Viola Schulz MD Primary Care Provider [phone] Erin Campa MD Unavailable [phone] Sumi Wilson Unavailable [phone] Encounter Details Date Type Department Care Team (Late st Contact Info) Description 12/09/2016 Procedure Pass [facility], Breast Ultrasound [address] [place] [id number] Social History Tobacco Use Types Packs/Day Years [...] [facility] [address] [place] [address] 03/19/2025 12:30 PM EST Appointment [facility] [address] [place] [address] 240 [place] [address] Lorraine Navarro, CELL OPERATION SUPERVISOR [address] [address] 03/19/2025 1:30 PM EST Office Visit [facility] 15 [facility], [address] [place] [address] Lorraine Navarro, CELL OPERATION SUPERVISOR 15 [facility] [address] [place] [address] [email or web address] Jocelin Callaway, CELL OPERATION SUPERVISOR 55 [facility] 7 [place] [address] [email or web address] documented as of this encounter Visit Diagnoses Not on filedocumented in this encounter Care Teams Manhole Builder Relationship Specialty Start Date End Date Viola Schulz MD [address] [place] [address] 104 [place] [address] PCP - General Internal Medicine 08/17/16 Erin Campa MD [address] [place] [address] [email or web address] Primary Oncologist Medical Oncology 10/05/17 Sumi Wilson FNP 30 [place] [address] [email or web address] Nurse Practitioner Oncology 05/30/21 documented as of this encounter Additional Source Comments The information contained in this document represents components of the legal health record. It is not the complete legal health record.[facility]
--- OUTSIDE RECORDS SUMMARY | 2025-01-24 13:12 | XMS_ITS | Encounter Summary ---
Author Organization [facility] Address [address] [facility] [address] [place] [address] Phone Care Team Providers Care Supervisor Refractory Products Name Role Phone Viola Schulz MD Primary Care Provider [phone] Erin Campa MD Unavailable [phone] Sumi Wilson Unavailable [phone] Encounter Details Date Type Department Care Team (Late st Contact Info) Description 10/06/2018 Ancillary Orders [facility] [address] [place] [address] Angelina Sarmiento MD [address] [address] [email or web address] Social History Tobacco Use Types [...] [facility] 15 [facility] [address] [place] [address] 03/19/2025 12:30 PM EST Appointment [facility] 15 [facility] [address] [place] [address] Lorraine Navarro, DOCTOR OF VETERINARY MEDICINE [address] [address] [email or web address] 03/19/2025 1:30 PM EST Office Visit Pending sale to [facility] 15 [facility], [address] [place] [address] Lorraine Navarro, DOCTOR OF VETERINARY MEDICINE [address] [address] [email or web address] Jocelin Callaway, DOCTOR OF VETERINARY MEDICINE [address] [address] [email or web address] documented as of this encounter Visit Diagnoses Not on filedocumented in this encounter Care Teams Supervisor Refractory Products Relationship Specialty Start Date End Date Viola Schulz MD [address] [place] [address] PCP - General Internal Medicine 08/17/16 Erin Campa MD [address] [place] [address] [email or web address] Primary Oncologist Medical Oncology 10/05/17 Sumi Wilson FNP [address] [place] [address] [email or web address] Nurse Practitioner Oncology 05/30/21 documented as of this encounter Additional Source Comments The information contained in this document represents components of the legal health record. It is not the complete legal health record.[facility]
--- OUTSIDE RECORDS SUMMARY | 2025-01-24 13:12 | XMS_ITS | Encounter Summary ---
Author Organization [facility] Address [address] [place] [address] [place] [address] Phone Care Team Providers Care Government Affairs Specialist Name Role Phone Viola Schulz MD Primary Care Provider [phone] Erin Campa MD Unavailable Sumi Wilson Unavailable [phone] Encounter Details Date Type Department Care Team (Late st Contact Info) Description 12/16/2016 Ancillary Orders [facility] IMG OUTSIDE IMG [address] [place] [address] System, Provider Not In, [place] [address] Social History Tobacco Use Types Packs/Day Years [...] [facility] 15 [facility] 240 [place] [address] 03/19/2025 12:30 PM EST Appointment [facility] [address] [place] [address] 240 [place] [address] Lorraine Navarro, GAS STOVE SERVICER HELPER 15 [facility] [place] [address] [email or web address] 03/19/2025 1:30 PM EST Office Visit [facility] 15 [facility], [address] [place] [address] Lorraine Navarro, GAS STOVE SERVICER HELPER 15 [facility] [place] [address] [email or web address] Jocelin Callaway, ABIODUN 55 [facility] [address] [place] [address] [email or web address] documented as of this encounter Results * Mammogram Outside (No Interpretation) (10/05/2016 12:00 AM EDT) Narrative [facility] INTERFACES - 12/16/2016 4:49 PM EDT This study is for PACS storage only and not for interpretation. us Provider Not In System PhD IMG OUTSIDE IMAGING W /OUT INTERPRETATION Final Result Performing Organization Address [facility] de Phone Number [facility] IMG INTERFACES * Mammogram Outside (No Interpretation) (10/01/2016 12:00 AM EDT) Narrative [facility] IMG INTERFACES - 12/16/2016 4:52 PM EDT This study is for PACS storage only and not for interpretation. us Provider Not In System PhD IMG OUTSIDE IMAGING W /OUT INTERPRETATION Final Result Performing Organization Address City/[facility]/ZIP Co de Phone Number [facility] IMG INTERFACES * Mammogram Outside (No Interpretation) (09/25/2016 12:00 AM EDT) Narrative [facility] IMG INTERFACES - 12/16/2016 5:03 PM EDT This study is for PACS storage only and not for interpretation. us Provider Not In System PhD IMG OUTSIDE IMAGING W /OUT INTERPRETATION Final Result Performing Organization Address [facility] de Phone Number [facility] IM[facility] INTERFACES * Mammogram Outside (No Interpretation) (09/24/2015 12:00 AM EDT) Narrative [facility] INTERFACES - 12/16/2016 5:10 PM EDT This study is for PACS storage only and not for interpretation. us Provider Not In System PhD IMG OUTSIDE IMAGING W /OUT INTERPRETATION Final Result Performing Organization Address [facility] de Phone Number [facility] IMG INTERFACES * US Breast Outside (No Interpretation) (11/21/2014 12:00 AM EDT) Narrative [facility] INTERFACES - 12/16/2016 5:15 PM EDT This study is for PACS storage only and not for interpretation. us Provider Not In System PhD IMG OUTSIDE IMAGING W /OUT INTERPRETATION Final Result Performing Organization Address [place] [facility] Phone Number [facility] INTERFACES * US Breast Outside (No Interpretation) (06/04/2014 12:15 AM EST) Narrative [facility] INTERFACES - 12/16/2016 5:20 PM EDT This study is for PACS storage only and not for interpretation. us Provider Not In System PhD IMG OUTSIDE IMAGING W /OUT INTERPRETATION Final Result Performing Organization Address [place] [facility] Phone Number [facility] INTERFACES * Mammogram Outside (No Interpretation) (06/04/2014 12:00 AM EST) Narrative [facility] INTERFACES - 12/16/2016 5:18 PM EDT This study is for PACS storage only and not for interpretation. us Provider Not In System PhD IMG OUTSIDE IMAGING W /OUT INTERPRETATION Final Result Performing Organization Address [facility] de Phone Number [facility] IMG INTERFACES * US Breast Outside (No Interpretation) (05/31/2014 12:15 AM EST) Narrative [facility] INTERFACES - 12/16/2016 5:25 PM EDT This study is for PACS storage only and not for interpretation. us Provider Not In System PhD IMG OUTSIDE IMAGING W /OUT INTERPRETATION Final Result Performing Organization Address City/[facility] de Phone Number [facility] IMG INTERFACES * Mammogram Outside (No Interpretation) (05/31/2014 12:00 AM EST) Narrative [facility] INTERFACES - 12/16/2016 5:23 PM EDT This study is for PACS storage only and not for interpretation. us Provider Not In System PhD IMG OUTSIDE IMAGING W /OUT INTERPRETATION Final Result Performing Organization Address [facility] de Phone Number [facility] IMG INTERFACES * Mammogram Outside (No Interpretation) (05/23/2014 12:00 AM EST) Narrative [facility] IMG INTERFACES - 12/16/2016 5:28 PM EDT This study is for PACS storage only and not for interpretation. us Provider Not In System PhD IMG OUTSIDE IMAGING W /OUT INTERPRETATION Final Result Performing Organization Address [facility] de Phone Number [facility] IMG INTERFACES * Mammogram Outside (No Interpretation) (07/10/2011 12:00 AM EDT) Narrative [facility] IMG INTERFACES - 12/16/2016 5:33 PM EDT This study is for PACS storage only and not for interpretation. us Provider Not In System PhD IMG OUTSIDE IMAGING W /OUT INTERPRETATION Final Result Performing Organization Address [facility] de Phone Number [facility] IMG INTERFACES documented in this encounter Visit Diagnoses Not on filedocumented in this encounter Care Teams Government Affairs Specialist Relationship Specialty Start Date End Date Viola Schulz MD [address] [place] [address] PCP - General Internal Medicine 08/17/16 Erin Campa MD [address] [place] [address] [email or web address] Primary Oncologist Medical Oncology 10/05/17 Sumi Wilson FNP [address] [place] [address] [email or web address] Nurse Practitioner Oncology 05/30/21 documented as of this encounter Additional Source Comments The information contained in this document represents components of the legal health record. It is not the complete legal health record.[facility]
--- OUTSIDE RECORDS SUMMARY | 2025-01-24 13:12 | XMS_ITS | Encounter Summary ---
Author Organization [facility] Address [address] [place] [address] [place] [address] Phone Care Team Providers Care Seo Executive Name Role Phone Viola Schulz MD Primary Care Provider [phone] Erin Campa MD Unavailable Sumi Wilson Unavailable [phone] Encounter Details Date Type Department Care Team (Late st Contact Info) Description 03/27/2021 Procedure Pass [facility] [address] [place] [address] Social History Tobacco Use Types Packs/Day Years [...] [facility] [address] [address] 03/19/2025 12:30 PM EST Appointment [facility] [address] [place] [address] Lorraine Navarro, RETAIL SELLING FLOOR LEADER [address] [place] [address], [place] [address] 03/19/2025 1:30 PM EST Office Visit [facility] 15 [facility], [address] [place] [address] Lorraine Navarro, RETAIL SELLING FLOOR LEADER 15 [facility] [place] [address] [email or web address] Jocelin Callaway, RETAIL SELLING FLOOR LEADER 55 [facility] [address] [place] [address] [email or web address] documented as of this encounter Visit Diagnoses Not on filedocumented in this encounter Care Teams Seo Executive Relationship Specialty Start Date End Date Viola Schulz MD [address] [place] [address] 104 [place] [address] PCP - General Internal Medicine 08/17/16 Erin Campa MD [address] [place] [address] [email or web address] Primary Oncologist Medical Oncology 10/05/17 Sumi Wilson FNP [address] [place] [address] [email or web address] Nurse Practitioner Oncology 05/30/21 documented as of this encounter Additional Source Comments The information contained in this document represents components of the legal health record. It is not the complete legal health record.[facility]
== END 2025-01-24 10:51 | disposition home or self-care (01) ==
LOC: HO.HMGAL 10:50
PROVIDERS: PCP Internal Medicine; Visit Provider Registered Nurse Emergency
DX: J30.89 Other allergic rhinitis (principal)
CPT/HCPCS: 95117; 95165

== ENCOUNTER 2025-02-21 10:13 | Outpatient (AMB) | payer OTHER, SELFPAY ==
--- OUTSIDE RECORDS SUMMARY | 2024-12-14 03:15 | XMS_ITS | Continuity of Care Document ---
Author Organization [facility] Address [address] [place] [address] Phone Care Team Providers Care Retail Service Representative Name Role Phone Brice CHÁVEZ, RVT, SEAMUS, Renan Unavailable U navailable Allergies, Adverse Reactions, Alerts Substance Reaction Status Criticality No Known Allergies Active No Inform ation Medications Medication Instructions Dosage Effective Dates (start - stop) Status Comments paroxetine 20 mg tablet - Ac tive Synthroid 88 mcg tablet - Ac tive nortriptyline 10 mg capsule - Active Procedures Procedure Date Office/Outpt E&M Established 15 Mins- [place] & [place] Duplex Scan-extrem Veins; Uni/ CT & [place] S Office/Outpt E&M Established 15 Mins- [place] & [place] Duplex Scan-extrem Veins; Uni/ CT & [place] J Office/Outpt E&M Established 15 Mins Jan Duplex Scan-extrem Veins; Uni/ Endovenous Laser, 1st Vein Endovenous Laser, 1st Vein Endovenous laser vein addon Office/Outpt E&M Established 15 Mins Jul Duplex Scan-extrem Veins; [facility]/ Advance Directives Directive Yes / No Effective Date File Name No Information Encounters Encounter Description Practice Location Reason(s) For Visit Diagnoses Date Provider Providers Copied on Encounter Office/Outpt E&M Established 15 Mins- [place] & [place] [facility], [address] [place] [address] [address], [id number], [place] tel:[phone] CVR - [place] - [place] Localized edemaCramp and spasmRestless legs syndromeVenous insufficiency (chronic) (peripheral) Sep-0 4- 5 Brice CHÁVEZ RVT, SEAMUS [place]. [address] [place] [address], [place], [place], [id number] , [place]. [phone] Referring Provider: Viola Blanco, [address] [place] [address] Suite [facility], [place], [address]. tel:[phone] [place] [facility], [address] [place] [address] [facility] [address]Suite [place], [id number], [place] tel:[phone] CVR - [place] - [place] Chronic venous hypertension (idiopathic) with other complications of left lower extremity Sep-0 5 Brice CHÁVEZ RVT, SEAMUS [place]. [address] [place] [address], [facility], [place], [id number] , [place]. [phone] Referring Provider: Viola Blanco, [address] [place] [address] Suite [facility], [place], [address]. tel:[phone] Office/Outpt E&M Established 15 Mins- [place] & [place] [facility], [address] [place] [address] [facility] [place], [id number], [place] tel:[phone] CVR - [place] Venous insufficiency (chronic) (peripheral)Res tless legs syndrome Gurjit-0 2 5 Brice CHÁVEZ RVT, SEAMUS [place]. [address] [place] [address], [facility], [place], [id number] , [place]. [phone] Referring Provider: Viola Blanco, [address] [place] [address] [address] [facility], [place], [address]. tel:[phone] [place] [facility], [address] [place] [address] [address]Suite [place], [id number], [place] tel:[phone] CVR - [place] - [place] Varicose veins of left lower extremity with pain Gurjit- 5 Brice CHÁVEZ, RVT, SEAMUS [place]. [address] [place] [address], [place], [place], [id number] , [place]. tel:[phone] Referring Provider: iVola Blanco, [address] [place] [address] Suite [facility], [place], [address]. tel:[phone] Office/Outpt E&M Established [facility], [address] [place] [address] [address], [id number], [place] tel:[phone] CVR - [place] - [place] Venous insufficiency (chronic) (peripheral) 3 Kurt CHÁVEZ FACS T SEAMUS Cage. [address] [place] [address], [place], [address], [place]. tel:[phone] Referring Provider: Viola Blanco, [address] [place] [address] Suite [facility], [place], [address]. tel:[phone] [place] [facility], [address] [place] [address] [address], [id number], [place] tel:[phone] CVR - [place] - [place] Encntr for f/u exam aft trtmt for cond oth than malig neoplmPain in right leg Sep- 3 Kurt CHÁVEZ FACS T SEAMUS Cage. [address] [place] [address], [place], [address], [place]. tel:[phone] Referring Provider: Viola Blanco, [address] [place] [address] [address] [facility], [place], [address]. tel:[phone] [place] [facility], [address] [place] [address] [address], [id number], [place] tel:[phone] CVR - [place] - [place] Pain in right leg 3 Kurt CHÁVEZ FACS MONSERRATT SEAMSU Cage. [address] [place] [address], [place], [address], [place]. tel:[phone] Referring Provider: Viola Blanco, [address] [place] [address] Suite [facility], [place], [address]. tel:[phone] [place] [facility], [address] [place] [address] [facility] [address], [id number], tel:[phone] CVR - [place] - Tami Pain in right leg 3 Kurt Cage. [address] [place] [address], [place], [address], [place]. tel:[phone] Referring Provider: Viola Blanco, [address] [place] [address], [place], [address]. tel:[phone] Office/Outpt E&M Established 15 Mins [place] [facility], [address] [place] [address] [facility] 1000Suite [facility] Hospital[facility] [place], [id number], [place] tel:[phone] CVR - [place] - Tami Venous insufficiency (chronic) (peripheral)Bod y mass index (BMI) 27.0-27.9, adult Apr-0 3 Kurt Cage. [address] [place] [address], [place], [address], [place]. tel:[phone] Referring Provider: Viola Blanco, [address] [place] [address], [place], [address]. tel:[phone] [place] [facility], [address] [place] [address] [facility] [address], [id number], [place] tel:[phone] CVR - [place] - [place] Venous insufficiency (chronic) (peripheral) Jun-0 3 Kurt Cage. [address] [place] [address], [place], [address], [place]. tel:[phone] Referring Provider: Viola Blanco, [address] [place] [address] [address] [facility], [place], [address]. tel:[phone] Family History Family Member Type Diagnosis Age At Onset No Information Payers Payer name Insurance type Covered republican ID José Luis [employer] [facility] [id number] Social History Type Description Quantity Date Captured Comments Alcohol Use Details Unknown Caffeine Use Details Unknown Tobacco Use Status Current non-smoker Smoking Status Never Smoker Non-Smoking Tobacco Use Details : No Details Available : No Details Available Sex Female Vital Signs Date / Time: Height Weight BMI Pulse Rate Blood Pressure Temperature Respiratory Rate Body Surface Area Head Circumference Head Circ. Percentile Wt./Kenji. Percentile BMI percentile Pulse Ox Inhaled Ox 78.930 kg (174.00 lbs) 27.3 4 kg/m eter (2) 122/72 mm[Hg] Chief Complaint And Reason For Visit No Information Reason For Referral Reason For Referral No Information Plan Of Treatment Date Type Action Status Goal Diet education completed Goal Diet education completed Goal Tobacco cessation counseling completed Goal Weight-reducing diet educati on completed Referral Ordered: Weight management: Referral to physician timeframe: 3 Months (related to Body mass index (BMI) 27.0-27.9, adult) ordered Referral Ordered: Weight management: Referral to physician timeframe: 3 Months (related to Body mass index (BMI) 27.0-27.9, adult) ordered Appointment Jerica Douglas BOOKED Appointment Jerica Douglas BOOKED History Of Present Illness Encounter Date Complaint History Of Prese nt Illness No Information Functional Status Date Functional Assessmen t No Information Instructions Date Instruction Additional Infor mation Diet education Related to Body mass index (BMI) 27.0-27.9, adult Giving Encouragement to exercise Related to Body mass index (BMI) 27.0-27.9, adult Lifestyle education Related to B jhony mass index (BMI) 27.0-27.9, adult Compression stocking usage as conservative measure Related to Localized edema Patient education booklet given Related to Localized edema Patient education booklet given Related to Venous insufficiency (chronic) (peripheral) Lifestyle education Related to B jhony mass index (BMI) 27.0-27.9, adult Giving Encouragement to exercise Related to Body mass index (BMI) 27.0-27.9, adult Diet education Related to Body mass index (BMI) 27.0-27.9, adult Compression stocking usage as conservative measure Related to Venous insufficiency (chronic) (peripheral) Weight-reducing diet education R elated to Body mass index [BMI] 27.0-27.9, adult Weight monitoring Related to Bod y mass index [BMI] 27.0-27.9, adult Assessments Type Assessment Date No Information Patient Care Teams Name Effective Dates (start - stop) Status Members No Information
== END 2025-02-21 10:14 | disposition home or self-care (01) ==
LOC: HO.HMGAL 10:13
PROVIDERS: PCP Internal Medicine; Visit Provider Registered Nurse Emergency
DX: J30.89 Other allergic rhinitis (principal)
CPT/HCPCS: 95117; 95165